=== PATIENT | female | born 1990 | race Caucasian/White ===

== ENCOUNTER 2023-04-23 21:54 | Outpatient (REF) | payer OTHER, SELFPAY ==
[2023-04-29 00:10] LABS: Age Gdln ACOG Testing Note (.); HPV Aptima Negative (Negative); IGP, Aptima HPV, rfx 16/18,45 Note (.)
== END 2023-04-23 21:55 | disposition home or self-care (01) ==
LOC: LAB 21:54
PROVIDERS: PCP Obstetrics & Gynecology; Visit Provider Obstetrics & Gynecology
DX: Z12.4 Encounter for screening for malignant neoplasm of cervix (principal)
CPT/HCPCS: 87624; G0145

== ENCOUNTER 2024-04-27 19:13 | Outpatient (REF) | payer OTHER, SELFPAY | END 2024-04-27 19:14 | disposition home or self-care (01) | LOC: LAB 19:13 | PROVIDERS: PCP Obstetrics & Gynecology; Visit Provider Obstetrics & Gynecology | DX: Z01.419 Encounter for gynecological examination (general) (routine) without abnormal findings (principal) | CPT/HCPCS: 87624; 88175 ==

== ENCOUNTER 2024-05-06 14:56 | Outpatient (OUT) | payer OTHER, SELFPAY ==
--- NOTE | 2024-05-06 15:06 | US_ITS ---
Patient Name: LOIS ROJAS MR#: [id number] : 1990 Exam Date: 05/06/2024 Ordering Doctor: DR Marcello El . RADIOLOGY REPORT PROCEDURE: MM TOMOSYNTHESIS DIAGNOSTIC BI, 05/06/2024, 15:54 US BREAST LT LIMITED, 05/06/2024, 15:10 COMPARISON: None. INDICATIONS: Breast Lump Calculator Name NCI Breast Cancer Risk Assessment Tool 5 Year Breast Cancer Risk Not Reported. Lifetime Breast Cancer Risk Not Reported. Personal Breast Cancer No Personal Ovarian Cancer No Treatments None Family Cancers None LOCATION: [facility] BREAST COMPOSITION: The breasts are heterogeneously dense,which may obscure small masses. FINDINGS: DIAGNOSTIC CATEGORY 1--NEGATIVE. RIGHT BREAST: No significant suspicious finding via mammography, tomosynthesis, and ultrasound. LEFT BREAST: No significant suspicious finding be mammography, tomosynthesis, and ultrasound. RECOMMENDATIONS: ROUTINE MAMMOGRAM AND CLINICAL EVALUATION IN 12 MONTHS. PLEASE NOTE: A NORMAL MAMMOGRAM DOES NOT EXCLUDE THE POSSIBILITY OF BREAST CANCER. A CLINICALLY SUSPICIOUS PALPABLE LUMP SHOULD BE BIOPSIED. Dictated by: Ronaldo Bridges M.D. on 05/06/2024 at 16:43 Approved by: Ronaldo Bridges M.D. on 05/06/2024 at 16:48
--- OUTSIDE RECORDS SUMMARY | 2024-05-06 15:08 | XMS_ITS | CCD ---
Author Organization [facility] Care Team Providers Care Costume Director Name Role Phone Mckayla Alexis Primary Care Provider TATE, DR PEDERSEN Admitting Unavailable TATE, DR PEDERSEN Attending Unavailable DEFRANCE, DR BLOCK Primary Care Unavailable TATE, DR PEDERSEN Consulting Unavailable TATE, DR PEDERSEN Consulting Unavailable DEFRANCE, DR BLOCK Primary Care Unavailable TATE, DR PEDERSEN Attending Unavailable TATE, DR PEDERSEN Admitting Unavailable KARASIK, DR RODRÍGUEZ Consulting Unavailable DEFRANCE, DR BLOCK Primary Care Unavailable TATE, DR PEDERSEN Attending Unavailable TATE, DR PEDERSEN Admitting Unavailable TATE, DR PEDERSEN Consulting Unavailable GEMBUSENDY Consulting Unavailable TATE, DR PEDERSEN Procedure Practitioner Unavailab le TATE, DR PEDERSEN Admitting Unavailable ATTE, DR PEDERSEN Attending Unavailable DEFRANCE, DR BLOCK Primary Care Unavailable TATE, DR PEDERSEN Consulting Unavailable TATE, DR PEDERSEN Admitting Unavailable TATE, DR PEDERSEN Attending Unavailable DEFRANCE, DR BLOCK Primary Care Unavailable TATE, DR PEDERSEN Consulting Unavailable ZIEBER, DR MAC Higuera Consulting Unavailable TATE, DR PEDERSEN Consulting Unavailable DEFRANCE, DR BLOCK Primary Care Unavailable TATE, DR PEDERSEN Attending Unavailable TATE, DR PEDERSEN Admitting Unavailable DEFRANCE, DR BLOCK Primary Care Unavailable UGBANA, LILY Attending Unavailable UGBANA, LILY Admitting Unavailable TATE, DR PEDERSEN Admitting Unavailable TATE, DR PEDERSEN Attending Unavailable DEFRANCE, DR BLOCK Primary Care Unavailable TATE, DR PEDERSEN Consulting Unavailable WEST, DR BLOCK Consulting Unavailable DEFRANCE, DR BLOCK Primary Care Unavailable TATE, DR PEDERSEN Attending Unavailable TATE, DR PEDERSEN Admitting Unavailable TATE, DR PEDERSEN Consulting Unavailable TATE, DR PEDERSEN Consulting Unavailable DEFRANCE, DR BLOCK Primary Care Unavailable TATE, DR PEDERSEN Attending Unavailable TATE, DR PEDERSEN Admitting Unavailable TATE, DR PEDERSEN Consulting Unavailable DEFRANCE, DR BLOCK Primary Care Unavailable TATE, DR PEDERSEN Attending Unavailable TATE, DR PEDERSEN Admitting Unavailable ZIEBER, DR MAC Higuera Consulting Unavailable KARASIK, DR RODRÍGUEZ Consulting Unavailable KARASIK, DR RODRÍGUEZ Attending Unavailable KARASIK, DR RODRÍGUEZ Admitting Unavailable DEFRANCE, DR BLOCK Primary Care Unavailable TATE, DR PEDERSEN Admitting Unavailable TAET, DR PEDERSEN Attending Unavailable DEFRANCE, DR BLOCK Primary Care Unavailable WEST, DR MCKAYLA Irizarry Consulting Unavailable TATE, DR PEDERSEN Consulting Unavailable ZIEBER, DR MAC Higuera Consulting Unavailable TATE, DR PEDERSEN Consulting Unavailable DEFRANCE, DR BLOCK Primary Care Unavailable TATE, DR PEDERSEN Admitting Unavailable TATE, DR PEDERSEN Attending Unavailable ZIEBER, DR MAC Higuera Consulting Unavailable TATE, DR PEDERSEN Consulting Unavailable DEFRANCE, DR BLOCK Primary Care Unavailable TATE, DR PEDERSEN Attending Unavailable TATE, DR PEDERSEN Admitting Unavailable ZIEBER, DR MAC Higuera Consulting Unavailable TATE, DR PEDERSEN Admitting Unavailable TATE, DR PEDERSEN Attending Unavailable DEFRANCE, DR BLOCK Primary Care Unavailable TATE, DR PEDERSEN Consulting Unavailable ZIEBER, DR MAC Higuera Consulting Unavailable TATE, DR PEDERSEN Admitting Unavailable TATE, DR PEDERSEN Attending Unavailable DEFRANCE, DR BLOCK Primary Care Unavailable WEST, DR MCKAYLA Irizarry Consulting Unavailable TATE, DR PEDERSEN Consulting Unavailable DEFRANCE, DR BLOCK Primary Care Unavailable TATE, DR PEDERSEN Attending Unavailable TATE, DR PEDERSEN Admitting Unavailable DEFRANCE, DR BLOCK Primary Care Unavailable KARASIK, DR RODRÍGUEZ Admitting Unavailable KARASIK, DR RODRÍGUEZ Attending Unavailable KARASIK, DR RODRÍGUEZ Consulting Unavailable TATE, DR PEDERSEN Consulting Unavailable ZIEBER, DR MAC Higuera Consulting Unavailable Mckayla Alexis Primary Care Provider Mckayla Alexis Primary Care Provider MCKAYLA WESTBROOK. Referring Unavailable MCKAYLA WESTBROOK. Primary Care Unavailable DEFRANCE, MCKAYLA Gallegos Attending Unavailable DEFRANCE, MCKAYLA Gallegos Referring Unavailable DEFRANCE, MCKAYLA Gallegos Primary Care Unavailable DEFRANCE, MCKAYLA T Attending Unavailable MCKAYLA WESTBROOK Referring Unavailable DEFMCKAYLA GURROLA Primary Care Unavailable SEDLAK, SOHEILA Zelaya Referring Unavailable DE ROSENDA, MCKAYLA MONDRAGON Primary Care Unavaila ble SEDLAK, SOHEILA Zelaya Referring Unavailable DE ROSENDA, MCKAYLA GIANCARLO Primary Care Unavaila ble SEDLAK, SOHEILA Zelaya Referring Unavailable DE ROSENDA, MCKAYLA GIANCARLO Primary Care Unavaila ble DE ROSENDA, MCKAYLA GIANCARLO Primary Care Unavaila ble SEDLAK, SOHEILA Zelaya Referring Unavailable SEDLAK, SOHEILA Zelaya Attending Unavailable DE ROSENDA, MCKAYLA MONDRAGON Primary Care Unavaila ble SEDLAK, SOHEILA Zelaya Attending Unavailable DE ROSENDA, MCKAYLA MONDRAGON Primary Care Unavaila ble TATENUVIA Attending Unavailable Medications Current Medications Medication Drug Class(es) Dates Sig (Normalized) Sig (Original) amoxicillin 875 mg / clavulanate 125 mg oral tablet (1 source) Penicillin-class Antibacterial Start: 01-30-2024 take 1 tablet by mouth every twelve hours Amoxicillin-Pot Clavulanate Active 1 TAB PO Every 12 hours 14 January 30, 2024 12:00am Calcium Carbonate / vitamin D3 (1 source) Start: 01-19-2024 take 1 tablet by mouth once daily calcium carbonate/vitamin D3 (SHAN-600 WITH VITAMIN D ORAL) Take 1 tablet by mouth once daily. 0 01/19/2024 Active cholecalciferol 0.125 mg oral capsule (9 sources) Vitamin D take 1 capsule by mouth once daily Cholecalciferol, Vitamin D3, 5,000 unit cap Indications: Multiple sclerosis (HCC) , Vitamin D deficiency Take 5,000 Units by mouth once daily. 0 Active Comment on above: Take 5,000 Units by mouth once daily. dextromethorphan hydrobromide 15 mg / guaiFENesin 400 mg / pseudoephedrine hydrochloride 60 mg oral tablet (1 source) alpha-Adrenergic Agonist, Uncompetitive X-gnchla-R-asparta te Receptor Antagonist, Sigma-1 Agonist Start: 01-30-2024 take 4 tablets by mouth every twenty-four hours Pseudoephedrine-Dm -Guaifenesin (Capmist Dm) 60-15-400 mg tablet Active 1 TAB PO EVERY 4-6 HOURS January 30, 2024 12:00am do not exceed 4 doses per 24 hrs iv contrast (will be provided with radiology test) (3 sources) Start: 04-02-2024 inject 1 dose intravenously once iv contrast (will be provided with radiology test) Indications: Multiple sclerosis (HCC) , Encounter for long-term (current) use of medications MRI Brain Inject, intravenously, once for 1 dose.No IV access, insert saline lock prior to beginning of sedation, infusion, injection of imaging exam.Discontinue saline lock post exam. If Pt. has a central line or IVAD, may access for administration according to line specific nursing protocol.Once exam is complete flush line and de-access according to line specific nursing protocol in the MR contrast administration guidelines link 1 Each 0 04/02/2024 Active Start: 08-15-2022 End: 08-16-2022 inject 1 dose intravenously once iv contrast (will be provided with radiology test) Indications: Multiple sclerosis (HCC) MRI Brain Inject, intravenously, once for 1 dose.No IV access, insert saline lock prior to beginning of sedation, infusion, injection of imaging exam.Discontinue saline lock post exam. If Pt. has a central line or IVAD, may access for administration according to line specific nursing protocol.Once exam is complete flush line and de-access according to line specific nursing protocol in the MR contrast administration guidelines link 1 Each 0 08/15/2022 08/16/2022 Active Start: 04-08-2022 End: 04-09-2022 inject 1 dose intravenously once iv contrast (will be provided with radiology test) MRI Brain Inject, intravenously, once for 1 dose.No IV access, insert saline lock prior to beginning of sedation, infusion, injection of imaging exam.Discontinue saline lock post exam. If Pt. has a central line or IVAD, may access for administration according to line specific nursing protocol.Once exam is complete flush line and de-access according to line specific nursing protocol in the MR contrast administration guidelines link 1 Each 0 04/08/2022 04/09/2022 Active Comment on above: MRI Brain Inject, in travenously, once for 1 dose.No IV access, insert saline lock prior to beginning of sedation, infusion, injection of imaging exam.Discontinue saline lock post exam. If Pt. has a central line or IVAD, may access for administration according to line specific nursing protocol.Once exam is complete flush line and de-access according to line specific nursing protocol in the MR contrast administration guidelines link multivit-min/ferrous fumarate (MULTI VITAMIN ORAL) (5 sources) multivit-min/colby barbi fumarate (MULTI VITAMIN ORAL) Take by mouth. 0 Active Comment on above: Take by mouth. ocrelizumab (OCREVUS INTRAVENOUS) (7 sources) ocrelizumab (OCR EVUS INTRAVENOUS) Inject intravenously once every 6 months. 0 Active Comment on above: Inject intravenously once every 6 months. Completed/Discontinued Medications Medication Drug Class(es) Dates Sig (Normalized) Sig (Original) acetaminophen 500 mg oral tablet (2 sources) Start: 01-07-2024 End: 01-07-2024 acetaminophen 1,000 mg tab(s) (TYLENOL) Start: 12-24-2023 End: 12-24-2023 acetaminophen 1,000 mg tab(s ) (TYLENOL) diphenhydrAMINE hydrochloride 25 mg oral capsule (2 sources) Histamine-1 Receptor Antagonist Start: 01-07-2024 End: 01-07-2024 diphenhydrAMINE 50 mg capsule (BENADRYL) Start: 12-24-2023 End: 12-24-2023 diphenhydrAMINE 50 mg capsul e (BENADRYL) Estradiol / Progesterone (1 source) Progesterone, Estrogen End: 04-08-2022 ESTRADIOL-PROGESTERONE ORAL Take by mouth. 0 04/08/2022 Discontinued (Other) Comment on above: Take by mouth. methylPREDNISolone 125 mg injection (2 sources) Corticosteroid Start: 01-07-2024 End: 01-07-2024 methylPREDNISolone sod succinate(PF) 100 mg injection (SOLU-Medrol) Start: 12-24-2023 End: 12-24-2023 methylPREDNISolone sod succi valentine(PF) 100 mg injection (SOLU-Medrol) 10 ml ocrelizumab 30 mg/ml injection (2 sources) Start: 01-07-2024 End: 01-07-2024 ocrelizumab (OCREVUS) in NaC l 0.9% Vial-Mate 300 mg 250 mL Start: 12-24-2023 End: 12-24-2023 ocrelizumab (OCREVUS) in NaC l 0.9% Vial-Mate 300 mg 250 mL Pxnonjiv-Gt-Rqd-Fe-FA tab (4 sources) Start: 12-18-2018 take 1 tablet by mouth once daily Sasihwdo-Eo-Top-Fe-FA tab Take 1 tablet by mouth once daily. 0 12/18/2018 Active Comment on above: Take 1 tablet by mahi th once daily. Problems Active Problems Problem Classification Problem Date Documented Date Episodic/Chronic Immunity disorders (1 source) Other specified disorders involving the immune mechanism, not elsewhere classified; Translations: [OTH SPEC D/O INVOLV IMMUNE MECH NEC] Onset: 06-06-2022 Chronic Menstrual disorders (4 sources) Irregular menstruation, unspecified; Translations: [IRREGULAR MENSTRUATION UNSPECIFIED] Onset: 11-16-2021 Chronic Multiple sclerosis (19 sources) Multiple sclerosis; Translations: [Multiple sclerosis] Onset: 04-21-2014 Chronic OB-related trauma to perineum and vulva (1 source) First degree perineal laceration during delivery; Translations: [FIRST DEG PERINEAL LAC DUR DELIV] Onset: 06-25-2022 Episodic Other aftercare (1 source) Long-term current use of drug therapy; Translations: [Other correction (current) drug therapy] 04-02-2024 Episodic Other complications of ; puerperium affecting management of mother (1 source) Diseases of the nervous system complicating childbirth; Translations: [DISEASES NERV SYS COMP CHILDBIRTH] Onset: 06-25-2022 Episodic Other complications of (4 sources) Diseases of the nervous system complicating , third trimester; Translations: [DISEASES NERV SYS COMP PREG 3RD TRI] Onset: 06-17-2022 Episodic Other and delivery including normal (11 sources) Encounter for routine follow-up; Translations: [Single live ] Onset: 11-21-2021 Episodic Other screening for suspected conditions (not mental disorders or infectious disease) (13 sources) Encounter for screening for Streptococcus B; Translations: [Encounter for screening for diabetes mellitus] Onset: 01-03-2022 Episodic Other upper respiratory disease (1 source) Pain in throat Onset: 02-17-2024 Episodic Other upper respiratory infections (1 source) Chronic sinusitis, unspecified; Translations: [Chronic sinusitis, unspecified] Onset: 02-17-2024 Chronic Other upper respiratory infections (3 sources) Acute maxillary sinusitis; Translations: [Acute maxillary sinusitis, unspecified] 01-30-2024 Episodic Residual codes; unclassified (1 source) 39 weeks gestation of ; Translations: [39 WEEKS GESTATION OF ] Onset: 06-25-2022 Episodic Residual codes; unclassified (1 source) 38 weeks gestation of ; Translations: [38 WEEKS GESTATION OF ] Onset: 06-13-2022 Episodic Residual codes; unclassified (1 source) 37 weeks gestation of ; Translations: [37 WEEKS GESTATION OF ] Onset: 06-06-2022 Episodic Residual codes; unclassified (1 source) 36 weeks gestation of ; Translations: [36 WEEKS GESTATION OF ] Onset: 05-30-2022 Episodic Residual codes; unclassified (1 source) 35 weeks gestation of ; Translations: [35 WEEKS GESTATION OF ] Onset: 05-22-2022 Episodic Residual codes; unclassified (1 source) 34 weeks gestation of ; Translations: [34 WEEKS GESTATION OF ] Onset: 05-18-2022 Episodic Residual codes; unclassified (1 source) 33 weeks gestation of ; Translations: [33 WEEKS GESTATION OF ] Onset: 05-09-2022 Episodic Residual codes; unclassified (1 source) 32 weeks gestation of ; Translations: [32 WEEKS GESTATION OF ] Onset: 04-30-2022 Episodic Residual codes; unclassified (1 source) 28 weeks gestation of ; Translations: [28 WEEKS GESTATION OF ] Onset: 04-11-2022 Episodic Screening and history of mental health and substance abuse codes (1 source) Personal history of nicotine dependence; Translations: [PERSONAL HISTORY OF NICOTINE DEPEND] Onset: 06-25-2022 Episodic Umbilical cord complication (1 source) Labor and delivery complicated by other cord entanglement, with compression, not applicable or unspecified; Translations: [L AND D COMP [facility] CRD ENTANGL COMPRS UNS] Onset: 06-25-2022 Episodic Unclassified (1 source) CONTACT W/AND (SUSP) EXPOS COVID-19; Translations: [CONTACT W/AND (SUSP) EXPOS COVID-19] Onset: 06-25-2022 Unclassified (3 sources) [facility] SPCF DIS/COND COMPL ; Translations: [[facility] SPCF DIS/COND COMPL ] Onset: 06-06-2022 Unclassified (1 source) Annual Exam Onset: 01-08-2024 Past or Other Problems Problem Classification Problem Date Documented Date Episodic/Chronic Immunizations and screening for infectious disease (6 sources) Encounter for screening for human papillomavirus (HPV); Translations: [Encounter for screening for infections with a predominantly sexual mode of transmission] Onset: 12-04-2021 Episodic Other female genital disorders (1 source) Other specified noninflammatory disorders of vagina; Translations: [OT SPEC NONINFLAMMATORY D/O VAGINA] Onset: 01-04-2022 Episodic Unclassified (1 source) [facility] SPCF DIS/COND COMPL ; Translations: [OT SPCF DIS/COND COMPL ] Onset: 06-04-2022 Results Test Name Value Interpretation Reference Range Facility No Panel InformationOrdered By: Bela Kelly on 01-30-2024 Quick Strep (POC) [facility] CBC AND AUTO DIFFon 01-13-20 24 ABSOLUTE BASOPHIL 0.0 X10E9/L Normal 0.0-0.[address] [facility] Comment on above: Performed By: #### Chely HERNANDEZ CMP, 38041-4 #### [facility] ([id number]) [address], [address] [place] [address] ABSOLUTE NEUTROPHIL 3.5 X10E9/L Normal 1.5-6.6 [facility] Comment on above: Performed By: #### Chely HERNANDEZ CMP, 16077-2 #### [facility] ([id number]) [address], [address] [place] [address] Basophils/100 WBC (Bld) 0.5 % Normal [facility] Comment on above: Performed By: #### Chely HERNANDEZ CMP, 67509-6 #### [facility] ([id number]) [address] [place] [address] Eosinophils (Bld) [#/Vol] 0.4 10*3/uL Normal 0.0-0.4 [facility] Comment on above: Performed By: #### Chely HERNANDEZ CMP, 26626-2 #### [facility] ([id number]) [address], [address] [place] [address] Eosinophils/100 WBC (Bld) 6.0 % Normal [facility] Comment on above: Performed By: #### Chely HERNANDEZ CMP, 26755-1 #### [facility] ([id number]) [address], [address] [place] [address] Erythrocyte distribution width (RBC) [Ratio] 14.2 % Normal 11.5-15.0 [facility] Comment on above: Performed By: #### Chely HERNANDEZ CMP, 63441-8 #### [facility] ([id number]) [address], [address] [place] [address] Hematocrit (Bld) [Volume fraction] 35.6 % Normal 35-47 [facility] Comment on above: Performed By: #### Chely HERNANDEZ CMP, 46484-3 #### [facility] ([id number]) [address], [address] [place] [address] Hemoglobin (Bld) [Mass/Vol] 11.5 g/dL Low 11.7-15.5 [facility] Comment on above: Performed By: #### Chely HERNANDEZ CMP, 77105-1 #### [facility] ([id number]) [address], [address] [place] [address] Lymphocytes (Bld) [#/Vol] 1.6 10*3/uL Normal 1.0-3.5 [facility] Comment on above: Performed By: #### Chely HERNANDEZ CMP, 04369-8 #### [facility] ([id number]) [address], [address] [place] [address] Lymphocytes/100 WBC (Bld) 27.4 % Normal [facility] Comment on above: Performed By: #### Chely HERNANDEZ CMP, 60242-6 #### [facility] ([id number]) [address], [address] [place] [address] MCH (RBC) [Entitic mass] 25.3 pg Low 27-34 [facility] Comment on above: Performed By: #### C DAVID, CMP, 78675-4 #### [facility] ([id number]) [address], [address] [place] [address] MCHC (RBC) [Mass/Vol] 32.5 g/dL Normal 32-36 [facility] Comment on above: Performed By: #### Chely BCA, CMP, 71005-8 #### [facility] ([id number]) [address], [address] [place] [address] MCV (RBC) [Entitic vol] 78 fL Low 80-100 [facility] Comment on above: Performed By: #### Chely HERNANDEZ, CMP, 76804-3 #### [facility] ([id number]) [address], [address] [place] [address] Monocytes (Bld) [#/Vol] 0.5 10*3/uL Normal 0-0.9 [facility] Comment on above: Performed By: #### Chely HERNANDEZ, CMP, 53506-6 #### [facility] ([id number]) [address], [address] [place] [address] Monocytes/100 WBC (Bld) 7.7 % Normal [facility] Comment on above: Performed By: #### Chely BCA, CMP, 49018-1 #### [facility] ([id number]) [address], [address] [place] [address] Neutrophils/100 WBC (Bld) 58.4 % Normal [facility] Comment on above: Performed By: #### Chely BCA, CMP, 83151-9 #### [facility] ([id number]) [address], [address] [place] [address] Platelet mean volume (Bld) [Entitic vol] 8.6 fL Normal 7-12 [facility] Comment on above: Performed By: #### Chely BCA, CMP, 14308-8 #### [facility] ([id number]) [address], [address] [place] [address] Platelets (Bld) [#/Vol] 295 10*3/uL Normal 150-450 [facility] Comment on above: Performed By: #### C BCA, CMP, 70468-2 #### [facility] ([id number]) [address], [address] [place] [address] RBC COUNT 4.57 X10E12/L Normal 3.80-5.20 [facility] Comment on above: Performed By: #### C BCA, CMP, 31053-7 #### [facility] ([id number]) [address], [address] [place] [address] WBC (Bld) [#/Vol] 6.0 10*3/uL Normal 4.0-11.[address] [facility] Comment on above: Performed By: #### C BCA, CMP, 59478-2 #### [facility] ([id number]) [address], [address] [place] [address] COMPREHENSIVE METABOLIC PANE Sebastien 01-13-2024 Albumin [Mass/Vol] 3.9 g/dL Normal 3.2-5.[address] [facility] Comment on above: Performed By: #### C BCA, CMP, 20411-2 #### [facility] ([id number]) [address], [address] [place] [address] ALP [Catalytic activity/Vol] 61 U/L Normal 39-130 [facility] Comment on above: Performed By: #### C BCA, CMP, 91787-9 #### [facility] ([id number]) [address], [address] [place] [address] ALT [Catalytic activity/Vol] 10 U/L Normal 0-31 [facility] Comment on above: Performed By: #### C BCA, CMP, 04099-6 #### [facility] ([id number]) [address], [address] [place] [address] Anion gap [Moles/Vol] 6 mmol/L Normal 5-15 [facility] Comment on above: Performed By: #### C DAVID CMP, 98655-3 #### [facility] ([id number]) [address], [address] [place] [address] AST [Catalytic activity/Vol] 13 U/L Normal 0-41 [facility] Comment on above: Performed By: #### C DAVID, CMP, 26791-0 #### [facility] ([id number]) [address], [address] [place] [address] Bilirubin [Mass/Vol] 0.5 mg/dL Normal 0.3-1.2 [facility] Comment on above: Performed By: #### Chely HERNANDEZ CMP, 29230-8 #### [facility] ([id number]) [address], [address] [place] [address] Calcium [Mass/Vol] 8.4 mg/dL Low 8.5-10.[address] [facility] Comment on above: Performed By: #### Chely HERNANDEZ, CMP, 68764-0 #### [facility] ([id number]) [address], [address] [place] [address] Chloride [Moles/Vol] 106 mmol/L Normal 98-109 [facility] Comment on above: Performed By: #### Chely HERNANDEZ CMP, 37212-3 #### [facility] ([id number]) [address], [address] [place] [address] CO2 [Moles/Vol] 27 mmol/L Normal 22-32 [facility] Comment on above: Performed By: #### Chely BCA, CMP, 40273-1 #### [facility] ([id number]) [address], [address] [place] [address] Creatinine [Mass/Vol] 0.64 mg/dL Normal 0.40-1.00 [facility] Comment on above: Result Comment: METH OD TRACEABLE TO IDMS STANDARD Performed By: #### C JACINTO HERNANDEZ, 96733-4 #### [facility] ([id number]) [address], [address] [place] [address] eGFR (CKD-EPI) NON-RACE DEPENDENT >90 Normal >59 [facility] Comment on above: Result Comment: Reported eGFR is based on the CKD-EPI 2020 equation that does not use a race coefficient. Performed By: #### C JACINTO HERNANDEZ, 06763-0 #### [facility] ([id number]) [address], [address] [place] [address] Glucose [Mass/Vol] 81 mg/dL Normal 65-[address] [facility] Comment on above: Performed By: #### Chely HERNANDEZ CMP, 22836-5 #### [facility] ([id number]) [address], [address] [place] [address] Potassium [Moles/Vol] 3.7 mmol/L Normal 3.5-5.0 [facility] Comment on above: Performed By: #### Chely HERNANDEZ CMP, 08449-0 #### [facility] ([id number]) [address], [address] [place] [address] Protein [Mass/Vol] 6.7 g/dL Normal 6.0-8.[address] [facility] Comment on above: Performed By: #### Chely HERNANDEZ CMP, 52888-6 #### [facility] ([id number]) [address], [address] [place] [address] Sodium [Moles/Vol] 139 mmol/L Normal 134-[address] [facility] Comment on above: Performed By: #### Chely HERNANDEZ CMP, 97546-1 #### [facility] ([id number]) [address], [address] [place] [address] Urea nitrogen [Mass/Vol] 19 mg/dL Normal 5-23 [facility] Comment on above: Performed By: #### Chely HERNANDEZ, CMP, 43625-0 #### [facility] ([id number]) [address], [address] [place] [address] Lipid 1996 panelon 4 Cholesterol [Mass/Vol] 202 mg/dL High 150-200 [facility] Comment on above: Performed By: #### Chely HERNANDEZ, CMP, 66841-7 #### [facility] ([id number]) [address], [address] [place] [address] Cholesterol in HDL [Mass/Vol] 51 mg/dL Normal >39 [facility] Comment on above: Result Comment: HDL <40 mg/dL - High Risk HDL > or = 40mg/dL- Desirable HDL >60 mg/dL - Negative Risk Performed By: #### Chely HERNANDEZ, CMP, 06797-3 #### [facility] ([id number]) [address], [address] [place] [address] Cholesterol in LDL [Mass/Vol] 123 mg/dL Normal <130 [facility] Comment on above: Result Comment: LDL <100 mg/dL - Desirable LDL >160 mg/dL - High Risk Performed By: #### Chely BCA, CMP, 82799-3 #### [facility] ([id number]) [address], [address] [place] [address] Cholesterol in VLDL [Mass/Vol] 28 mg/dL Normal 0-30 [facility] Comment on above: Performed By: #### Chely BCA, CMP, 69095-9 #### [facility] ([id number]) [address], [address] [place] [address] CHOLESTEROL:HDL 4.0 Normal 1.0-5.0 [facility] Comment on above: Performed By: #### C BCA, CMP, 16185-1 #### [facility] ([id number]) [address] [place] [address] Triglyceride [Mass/Vol] 142 mg/dL Normal 27-150 [facility] Comment on above: Performed By: #### C BCA, CMP, 92910-6 #### [facility] ([id number]) [address] [place] [address] BLOOD TB SCREENon 12-01-2023 M. tuberculosis tuberculin stim IFN-g Ql (Bld) Negative Normal [facility] Comment on above: Order Comment: Sanaz su Type: BLOOD SPECIMEN Ordering Facility: [facility] Address: [address] [place] [address] Performed By: #### I NFTBP #### [facility] IA [id number] [address] [place] [address] [place] MITOGEN MINUS NIL >9.98 Normal >=0.50 [facility] Comment on above: Order Comment: Sanaz su Type: BLOOD SPECIMEN Ordering Facility: [facility] Address: [address] [place] [address] Performed By: #### I NFTBP #### [facility] IA [id number] [address] [place] [address] [place] TB GAMMA INTERPRETATION Infection with M. tuberculosis complex is unlikely. If latent tuberculosis infection is highly suspected, a negative result does not rule out the infection. Specimens from immunocompromised patients and those <5 years of age may show false negative results. In case of a contact investigation, please repeat 8-12 weeks after a known exposure. Normal [facility] Comment on above: Order Comment: Sanaz su Type: BLOOD SPECIMEN Ordering Facility: [facility] Address: [address] [place] [address] Performed By: #### I NFTBP #### [facility] CLIA [id number] [address] [place] [address] [place] TB NIL 0.02 IU/mL Normal <=8.00 [facility] Comment on above: Order Comment: Speci men Type: BLOOD SPECIMEN Ordering Facility: [facility] Address: [address] [place] [address] Performed By: #### I NFTBP #### [facility] CLIA [id number] [address] [place] [address] [place] TB1 AG MINUS NIL 0.10 IU/mL Normal <0.35 [facility] Comment on above: Order Comment: Speci men Type: BLOOD SPECIMEN Ordering Facility: [facility] Address: [address] [place] [address] Performed By: #### I NFTBP #### [facility] CLIA [id number] [address] [place] [address] [place] TB2 AG MINUS NIL 0.06 IU/mL Normal <0.35 [facility] Comment on above: Order Comment: Speci men Type: BLOOD SPECIMEN Ordering Facility: [facility] Address: [address] [place] [address] Performed By: #### I NFTBP #### [facility] CLIA [id number] [address] [place] [address] [place] CBC W Auto Differential pane l (Bld)on 12-01-2023 Basophils (Bld) [#/Vol] 0.05 10*3/uL Normal <0.11 [facility] Comment on above: Order Comment: Speci men Type: BLOOD SPECIMEN Ordering Facility: [facility] Address: [address] [place] [address] Performed By: #### 5 7021-8 #### [facility] CLIA [id number] [address] [place] [address] Basophils/100 WBC (Bld) 0.7 % Normal [facility] Comment on above: Order Comment: Speci men Type: BLOOD SPECIMEN Ordering Facility: [facility] Address: [address] [address] Performed By: #### 5 7021-8 #### [facility] CLIA [id number] [address] [place] [address] Differential cell count method Nom (Bld) Auto Normal [facility] Comment on above: Order Comment: Speci men Type: BLOOD SPECIMEN Ordering Facility: [facility] Address: [address] [place], [place] [address] Performed By: #### 5 7021-8 #### [facility] CLIA [id number] [address] [place] [address] Eosinophils (Bld) [#/Vol] 0.51 10*3/uL High <0.46 [facility] Comment on above: Order Comment: Speci men Type: BLOOD SPECIMEN Ordering Facility: [facility] Address: [address] [place] [address] Performed By: #### 5 7021-8 #### [facility] CLIA [id number] [address] [place] [address] Eosinophils/100 WBC (Bld) 6.8 % Normal [facility] Comment on above: Order Comment: Speci men Type: BLOOD SPECIMEN Ordering Facility: [facility] Address: [address] [place] [address] Performed By: #### 5 7021-8 #### [facility] CLIA [id number] [address] [place] [address] Erythrocyte distribution width (RBC) [Ratio] 14.2 % Normal 11.5-15.0 [facility] Comment on above: Order Comment: Speci men Type: BLOOD SPECIMEN Ordering Facility: [facility] Address: [address] [address] Performed By: #### 5 7021-8 #### [facility] CLIA [id number] [address] [place] [address] Hematocrit (Bld) [Volume fraction] 36.9 % Normal 36.0-46.0 [facility] Comment on above: Order Comment: Speci men Type: BLOOD SPECIMEN Ordering Facility: [facility] Address: [address] [place], [place] [address] Performed By: #### 5 7021-8 #### [facility] CLIA [id number] [address] [place] [address] Hemoglobin (Bld) [Mass/Vol] 11.7 g/dL Normal 11.5-15.5 [facility] Comment on above: Order Comment: Speci men Type: BLOOD SPECIMEN Ordering Facility: [facility] Address: [address] [place] [address] Performed By: #### 5 7021-8 #### [facility] CLIA [id number] [address] [place] [address] Immature granulocytes (Bld) [#/Vol] 10*3/uL Normal <0.10 [facility] Comment on above: Order Comment: Speci men Type: BLOOD SPECIMEN Ordering Facility: [facility] Address: [address] [place] [address] Performed By: #### 5 7021-8 #### [facility] CLIA [id number] [address] [place] [address] Immature granulocytes/100 WBC (Bld) 0.3 % Normal [facility] Comment on above: Order Comment: Speci men Type: BLOOD SPECIMEN Ordering Facility: [facility] Address: [address] [place] [address] Performed By: #### 5 7021-8 #### [facility] CLIA [id number] [address] [place] [address]46 Lymphocytes (Bld) [#/Vol] 2.47 10*3/uL Normal 1.00-4.00 [facility] Comment on above: Order Comment: Speci men Type: BLOOD SPECIMEN Ordering Facility: [facility] Address: [address] [address] Performed By: #### 5 7021-8 #### [facility] CLIA [id number] [address] [place] [address]18 Lymphocytes/100 WBC (Bld) 32.9 % Normal [facility] Comment on above: Order Comment: Speci men Type: BLOOD SPECIMEN Ordering Facility: [facility] Address: [address] [place] [address] Performed By: #### 5 7021-8 #### [facility] CLIA [id number] [address] [place] [address]5788 MCH (RBC) [Entitic mass] 25.7 pg Low 26.0-34.0 [facility] Comment on above: Order Comment: Speci men Type: BLOOD SPECIMEN Ordering Facility: [facility] Address: [address] [place] [address] Performed By: #### 5 7021-8 #### [facility] CLIA [id number] [address] [place] [address] 78779 MCHC (RBC) [Mass/Vol] 31.7 g/dL Normal 30.5-36.0 [facility] Comment on above: Order Comment: Speci men Type: BLOOD SPECIMEN Ordering Facility: [facility] Address: [address] [place] [address] Performed By: #### 5 7021-8 #### [facility] CLIA [id number] [address] [place] [address] 63765 MCV (RBC) [Entitic vol] 81.1 fL Normal 80.0-100.0 [facility] Comment on above: Order Comment: Speci men Type: BLOOD SPECIMEN Ordering Facility: [facility] Address: [address] [place] [address] Performed By: #### 5 7021-8 #### [facility] CLIA [id number] [address] [place] [address] 06682 Monocytes (Bld) [#/Vol] 0.44 10*3/uL Normal <0.87 [facility] Comment on above: Order Comment: Speci men Type: BLOOD SPECIMEN Ordering Facility: [facility] Address: [address] [place] [address] Performed By: #### 5 7021-8 #### [facility] CLIA [id number] [address] [place] [address] 96727 Monocytes/100 WBC (Bld) 5.9 % Normal [facility] Comment on above: Order Comment: Speci men Type: BLOOD SPECIMEN Ordering Facility: [facility] Address: [address] [place] [address] Performed By: #### 5 7021-8 #### [facility] CLIA [id number] [address] [place] [address]24 Neutrophils (Bld) [#/Vol] 4.02 10*3/uL Normal 1.45-7.50 [facility] Comment on above: Order Comment: Speci men Type: BLOOD SPECIMEN Ordering Facility: [facility] Address: [address] [place] [address] Performed By: #### 5 7021-8 #### [facility] CLIA [id number] [address] [place] [address] 70377 Neutrophils/100 WBC (Bld) 53.4 % Normal [facility] Comment on above: Order Comment: Speci men Type: BLOOD SPECIMEN Ordering Facility: [facility] Address: [address] [place] [address] Performed By: #### 5 7021-8 #### [facility] CLIA [id number] [address] [place] [address] 29025 Nucleated RBC (Bld) [#/Vol] 10*3/uL Normal <0.01 [facility] Comment on above: Order Comment: Speci men Type: BLOOD SPECIMEN Ordering Facility: [facility] Address: [address] [place] [address] Performed By: #### 5 7021-8 #### [facility] CLIA [id number] [address] [place] [address]21 Nucleated RBC/100 WBC (Bld) [Ratio] 0.0 /100 WBC Normal [facility] Comment on above: Order Comment: Speci men Type: BLOOD SPECIMEN Ordering Facility: [facility] Address: [address] [address] Performed By: #### 5 7021-8 #### [facility] CLIA [id number] [address] [place] [address] 86379 Platelet mean volume (Bld) [Entitic vol] 9.6 fL Normal 9.0-12.7 [facility] Comment on above: Order Comment: Speci men Type: BLOOD SPECIMEN Ordering Facility: [facility] Address: [address] [address] Performed By: #### 5 7021-8 #### [facility] CLIA [id number] [address] [place] [address] 72384 Platelets (Bld) [#/Vol] 272 10*3/uL Normal 150-400 [facility] Comment on above: Order Comment: Speci men Type: BLOOD SPECIMEN Ordering Facility: [facility] Address: [address] [address] Performed By: #### 5 7021-8 #### [facility] CLIA [id number] [address] [place] [address] 23700 RBC (Bld) [#/Vol] 4.55 10*6/uL Normal 3.90-5.20 [facility] Comment on above: Order Comment: Speci men Type: BLOOD SPECIMEN Ordering Facility: [facility] Address: [address] [place] [address] Performed By: #### 5 7021-8 #### [facility] CLIA [id number] [address] [place] [address] 97376 WBC (Bld) [#/Vol] 7.51 10*3/uL Normal 3.70-11.00 [facility] Comment on above: Order Comment: Speci men Type: BLOOD SPECIMEN Ordering Facility: [facility] Address: [address] [address] Performed By: #### 5 7021-8 #### [facility] CLIA [id number] [address] [place] [address] Comprehensive metabolic 2000 panelon 12-01-2023 Albumin [Mass/Vol] 4.3 g/dL Normal 3.9-4.9 [facility] Comment on above: Order Comment: Speci men Type: BLOOD SPECIMEN Ordering Facility: [facility] Address: [address] [place] [address] Performed By: #### 2 4323-8 #### [facility] CLIA [id number] [address] [place] [address]19 ALP [Catalytic activity/Vol] 76 U/L Normal 34-123 [facility] Comment on above: Order Comment: Speci men Type: BLOOD SPECIMEN Ordering Facility: [facility] Address: [address] [place] [address] Performed By: #### 2 4323-8 #### [facility] CLIA [id number] [address] [place] [address]288 ALT [Catalytic activity/Vol] 11 U/L Normal 7-38 [facility] Comment on above: Order Comment: Speci men Type: BLOOD SPECIMEN Ordering Facility: [facility] Address: [address] [place] [address] Performed By: #### 2 4323-8 #### [facility] CLIA [id number] [address] [place] [address]79 Anion gap [Moles/Vol] 11 mmol/L Normal 9-18 [facility] Comment on above: Order Comment: Speci men Type: BLOOD SPECIMEN Ordering Facility: [facility] Address: [address] [place], [place] [address] Performed By: #### 2 4323-8 #### [facility] CLIA [id number] [address] [place] [address] AST [Catalytic activity/Vol] 12 U/L Low 13-35 [facility] Comment on above: Order Comment: Speci men Type: BLOOD SPECIMEN Ordering Facility: [facility] Address: [address] [place] [address] Performed By: #### 2 4323-8 #### [facility] CLIA [id number] [address] [place] [address] Bilirubin [Mass/Vol] mg/dL Low 0.2-1.3 [facility] Comment on above: Order Comment: Speci men Type: BLOOD SPECIMEN Ordering Facility: [facility] Address: [address] [place] [address] Performed By: #### 2 4323-8 #### [facility] CLIA [id number] [address] [place] [address]20 Calcium [Mass/Vol] 9.4 mg/dL Normal 8.5-10.2 [facility] Comment on above: Order Comment: Speci men Type: BLOOD SPECIMEN Ordering Facility: [facility] Address: [address] [place] [address] Performed By: #### 2 4323-8 #### [facility] CLIA [id number] [address] [place] [address] 22716 Chloride [Moles/Vol] 108 mmol/L High 97-105 [facility] Comment on above: Order Comment: Speci men Type: BLOOD SPECIMEN Ordering Facility: [facility] Address: [address] [place] [address] Performed By: #### 2 4323-8 #### [facility] CLIA [id number] [address] [place] [address] 27855 CO2 [Moles/Vol] 25 mmol/L Normal 22-30 [facility] Comment on above: Order Comment: Speci men Type: BLOOD SPECIMEN Ordering Facility: [facility] Address: [address] [place] [address] Performed By: #### 2 4323-8 #### [facility] CLIA [id number] [address] [place] [address]22 Creatinine [Mass/Vol] 0.74 mg/dL Normal 0.58-0.96 [facility] Comment on above: Order Comment: Sanaz su Type: BLOOD SPECIMEN Ordering Facility: [facility] Address: [address] [place] [address] Performed By: #### 2 4323-8 #### [facility] CLIA [id number] [address] [place] [address] Creatinine and Glomerular filtration rate.predicted panel (S/P/Bld) 108 mL/min/1.73m??? Normal >=60 [facility] Comment on above: Order Comment: Sanaz su Type: BLOOD SPECIMEN Ordering Facility: [facility] Address: [address] [place], [place] [address] Result Comment: Nikki mated Glomerular Filtration Rate (eGFR) is calculated using the 2020 CKD-EPI creatinine equation. This equation utilizes serum creatinine, sex, and age as parameters. The creatinine assay has traceable calibration to isotope dilution-mass spectrometry. Refer to KDIGO guidelines for clinical interpretation. In patients with unstable renal function, e.g. those with acute kidney injury, the eGFR may not accurately reflect actual GFR. Performed By: #### 2 4323-8 #### [facility] CLIA [id number] [address] [place] [address]406 Glucose [Mass/Vol] 81 mg/dL Normal 74-99 [facility] Comment on above: Order Comment: Sanaz su Type: BLOOD SPECIMEN Ordering Facility: [facility] Address: [address] [place] [id number] Result Comment: The [place] [employer] (ADA) provides guidance for cutoff values for fasting glucose and random glucose. The ADA defines fasting as no caloric intake for at least 8 hours. Fasting plasma glucose results between 100 to 125 mg/dL indicate increased risk for diabetes (prediabetes). Fasting plasma glucose results greater than or equal to 126 mg/dL meet the criteria for diagnosis of diabetes. In the absence of unequivocal hyperglycemia, results should be confirmed by repeat testing. In a patient with classic symptoms of hyperglycemia or hyperglycemic crisis, random plasma glucose results greater than or equal to 200 mg/dL meet the criteria for diagnosis of diabetes. Reference: Standards of Medical Care in Diabetes 2016, [place] [employer]. Diabetes Care. 2016.39(Suppl 1). Performed By: #### 2 4323-8 #### [facility] CLIA [id number] [address] [place] [address] Potassium [Moles/Vol] 3.9 mmol/L Normal 3.7-5.1 [facility] Comment on above: Order Comment: Speci men Type: BLOOD SPECIMEN Ordering Facility: [facility] Address: [address] [place] [address] Performed By: #### 2 4323-8 #### [facility] CLIA [id number] [address] [place] [address] Protein [Mass/Vol] 7.1 g/dL Normal 6.3-8.0 [facility] Comment on above: Order Comment: Speci men Type: BLOOD SPECIMEN Ordering Facility: [facility] Address: [address] [place] [address] Performed By: #### 2 4323-8 #### [facility] CLIA [id number] [address] [place] [address] Sodium [Moles/Vol] 144 mmol/L Normal 136-144 [facility] Comment on above: Order Comment: Speci men Type: BLOOD SPECIMEN Ordering Facility: [facility] Address: [address] [place], [place] [address] Performed By: #### 2 4323-8 #### [facility] CLIA [id number] [address] [place] [address]887 Urea nitrogen [Mass/Vol] 17 mg/dL Normal 7-21 [facility] Comment on above: Order Comment: Speci men Type: BLOOD SPECIMEN Ordering Facility: [facility] Address: [address] [place] [address] Performed By: #### 2 4323-8 #### [facility] CLIA [id number] [address] [place] [address] HBV core Ab Ser Qlon 024 HBV core Ab Ql (S) Negative Normal Negative [facility] Comment on above: Order Comment: Speci men Type: BLOOD SPECIMEN Ordering Facility: [facility] Address: [address] [place] [address] Result Comment: No e vidence of current or past infection with Hepatitis B virus. Should recent infection be suspected, repeat testing may be considered 3-4 weeks after this draw. Performed By: #### 2 2322-2, 39902-6, 5195-3 #### [facility] CLIA [id number] [address] [place] [address] [place] HBV surface Ab Ql (S)on HBV surface Ab Qn (S) 471.19 mIU/mL Normal [facility] Comment on above: Order Comment: Speci men Type: BLOOD SPECIMEN Ordering Facility: [facility] Address: [address] [place] [address] Result Comment: <8 m IU/mL: No serological evidence of immunity to Hepatitis B Virus. >/= 8 to <12 mIU/mL: No serological evidence of immunity to Hepatitis B Virus. >/= 12 mIU/mL: Consistent with serological evidence of immunity to Hepatitis B Virus. Performed By: #### 2 2322-2, 11947-1, 5195-3 #### [facility] CLIA [id number] [address] [place] [address] [place] HBV surface Ab Ser Qlon HBV surface Ab Ql (S) Positive Normal [facility] Comment on above: Order Comment: Speci men Type: BLOOD SPECIMEN Ordering Facility: [facility] Address: [address] [place] [address] Result Comment: Cons istent with serological evidence of immunity to Hepatitis B Virus. Performed By: #### 2 2322-2, 80287-5, 5195-3 #### [facility] CLIA [id number] [address] [place] [address] [place] HBV surface Ag Ser Qlon HBV surface Ag Ql (S) Negative Normal Negative [facility] Comment on above: Order Comment: Speci men Type: BLOOD SPECIMEN Ordering Facility: [facility] Address: [address] [place] [address] Performed By: #### 2 2322-2, 97637-0, 5195-3 #### [facility] CLIA [id number] [address] [place] [address] [place] HCV Ab Ser Qlon 12-01-2023 HCV Ab Ql (S) Negative Normal Negative [facility] Comment on above: Order Comment: Speci men Type: BLOOD SPECIMEN Ordering Facility: [facility] Address: [address] [place] [address] Result Comment: The result suggests no evidence of active infection with Hepatitis C virus. Should recent infection be suspected, repeat testing may be considered 4-6 weeks after this draw. Performed By: #### 1 6128-1 #### [facility] CLIA [id number] [address] [place] [address] [place] IgG SerPl-mCncon 12-01-2023 IgG [Mass/Vol] 1074 mg/dL Normal 700-1600 [facility] Comment on above: Order Comment: Pbi men Type: BLOOD SPECIMEN Ordering Facility: [facility] Address: [address] [place] [address] Performed By: #### 2 465-3, 2472-9 #### [facility] CLIA [id number] [address] [place] [address] [place] IgM SerPl-mCncon 12-01-2023 IgM [Mass/Vol] 106 mg/dL Normal 40-230 [facility] Comment on above: Order Comment: Speci men Type: BLOOD SPECIMEN Ordering Facility: [facility] Address: [address] [place] [address] Performed By: #### 2 465-3, 8062-9 #### [facility] CLIA [id number] [address] [place] [address] [place] CNOVon 11-28-2023 CNOV Office Visit ([facility] ) ELENALOIS SHAFFER ([id number]) 1990 F Date Time Provider Department 11/28/23 9:15 AM [facility] During your visit today, we recorded the following information about you: Pulse Blood pressure Weight Height 102/minute 114/66 78.8 kg 1.6 m Last Period 11/15/23 Soheila Matute APRN.[facility] 11/28/2023 9:44 AM [facility] FOR MULTIPLE SCLEROSIS FOLLOWUP/ESTABLISHED PATIENT VISIT Principal Neurologic Diagnosis: Multiple Sclerosis HISTORY OF ILLNESS Onset: 11/2013 Diagnosis of MS: 07/2015 (active MRI) Disease course at onset: relapsing-remitting Current disease course: relapsing-remitting Previous disease therapies: - Tecfidera 10/2015 - 05/2018. Stopped in order to become - Elected to start Gilenya 07/2015 but denied - Tecfidera 09/01/2019 - 12/10/2020 (restarted 09/01/2019 after . Stopped due to new lesions on MRI) - Ocrevus start 12/11/2020 AND 12/25/2020. Last q6 month tx 06/13/2021 (cycle 2, held for family planning) Current disease therapy: None Most recent MRI brain: 10/08/2023 Most recent MRI cervical spine: not done Most recent MRI thoracic spine: not done CSF: 03/23/2014 (+) OCBs 3 JCV serology: 07/18/2015 0.11 (-) VZV Ig07/18/2015 (+) CHIEF COMPLAINT: Follow-up for monitoring off MS modifying therapy INTERVAL HISTORY Usual treating team: Francis/Giovani The patient is unaccompanied. The patient was last seen 08/15/2022, Not on DMT. Since the patient's last visit the patient reports overall feeling stable. Patient denies any new or worsening neurologic symptoms. Recently stopped , ready to resume DMT. Has had a lot of difficulties with her son's allergies negatively impacting sleep but this has improved now that they know what his allergies are and he is sleeping better. Longstanding intermittent left facial numbness particularly when tired. No recent occurrence. SUBJECTIVE AND REVIEW OF SYSTEMS REVIEW OF SYSTEMS Refer to patient-entered data. Mood: PHQ9 responses reviewed and appear below Spasticity: None Bladder: Normal Bowel: Normal Pain related to today's visit:reviewed on nursing intake documentation Fatigue: Mild, See HPI Sleep: No problem/well Memory/Concentration: Normal Neuro-Qol Functions (higher = better functioning) 11/27/2023 08/15/2022 -- Upper Extremity Domain T Score 57 57 11/27/2023 08/15/2022 -- Lower Extremity Domain T Score 62 62 11/27/2023 08/15/2022 -- Cognitive Function Domain T Score 67 67 07/22/2019 04/19/2019 -- Positive Affect Well Being T Score 71.69 71.69 11/27/2023 08/15/2022 -- Ability To Participate In Social Roles T Score 63 63 11/27/2023 08/15/2022 -- Satisfaction With Social Roles T Score 62 62 Neuro-Qol Symptoms (higher = worse symptoms) 11/27/2023 08/15/2022 -- Sleep Domain T Score 32 32 11/27/2023 08/15/2022 -- Fatigue Domain T Score 42 42 11/27/2023 08/15/2022 -- Anxiety Domain T Score 45 52 11/27/2023 08/15/2022 -- Depression Domain T Score 38 46 11/27/2023 08/15/2022 -- Stigma Domain T Score 37 37 07/22/2019 04/19/2019 -- Emotional Behavior Dyscontrol T Score 29.51 29.51 *NeuroQoL is a multi-domain patient-reported quality of life questionnaire PHQ-9 Flowsheet Row Office Visit from 11/28/2023 in [facility] Office Visit from 08/15/2022 in [facility] PHQ-9 Score 0 0 *PHQ-9 is a questionnaire for depressive symptoms, with scores 0-4 indicating none, 5-9 mild, 10-14 moderate, 15-19 moderately severe, and 20-27 severe symptoms. PROMIS-10 Flowsheet Row Office Visit from 11/28/2023 in [facility] Office Visit from 08/15/2022 in [facility] Global Physical Health T Score 57.7 57.7 Global Mental Health T Score 59 50.8 0-10 Standard Pain Scale 5 5 *PROMIS-10 is a patient-reported quality of life measure, typically reported as physical and mental domains. Here scores are expressed as percentiles, where the lowest possible score is one, the highest possible score is 99, and 50 is average. PAST HISTORY was reviewed and updated PAST MEDICAL HISTORY Diagnosis Date Multiple sclerosis (HCC) PAST SURGICAL HISTORY Procedure Laterality Date NONE MEDICATIONS and ALLERGIES were reviewed and updated. SOCIAL HISTORY was reviewed and updated: Social History Tobacco Use Smoking status: Former Packs/day: 0.25 Years: 4.00 Additional pack years: 0.00 Total pack years: 1.00 Types: Cigarettes Smokeless tobacco: Never Tobacco comments: Quit smoking in 2013 Living situation: Living at home without assistance Employment Status / Disability: Full-time [employer] BP 114/66 Pulse 102 Ht 160 cm (5' 3 ) Wt 78.8 kg (173 lb 11.2 oz) LMP 11/15/2023 BMI 30.77 kg/m? Multiple Sclerosis Performance Test Flowsheet [facility] Office Visit from 11/28/2023 in [facility] Office Visit from more content not included)... Normal [facility] BRAIN & CERVICAL SPINE MRI D [facility] DATAon 10-08-2023 Brain Enhancing Lesions None [facility] Brain Interval Improvement None [facility] Brain New T2 Lesions None Site [facility] Brain Other Significant MRI Findings Prominent perivascular space in the left basal ganglia. Trace right mastoid and middle ear effusion. [facility] Brain Parenchymal Volume Loss None [facility] Brain T2 [place] of Disease Mild [facility] MRI BRAIN WO/W IVCONon 10-08 MRI BRAIN WO/W IVCON * * *Final Report* * * DATE OF EXAM: Oct 08 2023 3:28PM [facility] 0295 - MRI BRAIN WO/W IVCON / PROCEDURE REASON: Multiple sclerosis (HCC) * * * * Physician Interpretation * * * * EXAMINATION: MRI BRAIN WO/W IVCON HISTORY: Multiple sclerosis. Routine follow-up Onset: 11/2013 Diagnosis of MS: 07/2015 (active MRI) Disease course at onset: relapsing-remitting Current disease course: relapsing-remitting TECHNIQUE: Brain MRI with demyelinating disease protocol with and without IV gadolinium. MQ: [id number] Contrast: 15 mL Dotarem IV COMPARISON: MRI brain 08/15/2022 for continued multiple sclerosis follow-up, demonstrating no new T2 lesions. RESULT: MR BRAIN: Parenchymal Findings: There are multiple foci of hyperintensity on FLAIR and T2 within the white matter, compatible with the clinical diagnosis of multiple sclerosis. New T2 Lesions: None Site(s) of New/Larger T2 Lesion(s): Not applicable Interval Improvement: None. New Enhancing Lesions: None T2 [place] of Disease: Mild. Parenchymal Volume Loss: None. Other Significant Findings: Prominent perivascular space in the left basal ganglia. Trace right mastoid and middle ear effusion. *Note:? The definition of new T2 Lesions includes both new and enlarging plaques on T2-weighted FLAIR images (new lesions greater than or equal to 5mm3 or an increase in diameter of an existing lesion by greater than or equal to 2mm). IMPRESSION: Multiple intracranial white matter lesions compatible with multiple sclerosis. No new T2 lesions and no new enhancing lesions. No significant parenchymal volume loss. Other Significant Intracranial Findings: None Aircraft Engine Specialist: PSCB Transcribe Date/Time: Oct 08 2023 3:33P Dictated by : BIBIANA SCOTT MD This examination was interpreted and the report reviewed and electronically signed by: ADAM SOUSA MD on Oct 08 2023 4:03PM EST [id number] N Normal [facility] BRAIN & CERVICAL SPINE MRI D [facility] DATAon 08-15-2022 Brain Enhancing Lesions None [facility] Brain Interval Improvement None [facility] Brain New T2 Lesions None Site [facility] Brain Other Significant MRI Findings None. [facility] Brain Parenchymal Volume Loss None [facility] Brain T2 [place] of Disease Mild [facility] MRI BRAIN WO/W IVCONon 08-15 [facility] CBC AUTO DIFFon 06-18-2022 BASO # 0.0 103/ul Normal 0.0-0.1 [facility] Comment on above: Performed By: #### H IV12 #### [facility] [address] [place] [address] Dr. Shwetha Cordoba Basophils/100 WBC (Bld) 0.3 % Normal 0.2-2.0 [facility] Comment on above: Performed By: #### H IV12 #### [facility] [address] [place] [address] Dr. Shwetha Cordoba EO # 0.1 103/ul Normal 0.0-0.7 [facility] Comment on above: Performed By: #### H IV12 #### [facility] [address] [place] [address] Dr. Shwetha Cordoba Eosinophils/100 WBC (Bld) 0.8 % Critically low 0.9-7.0 [facility] Comment on above: Performed By: #### H IV12 #### [facility] [address] [place] [address] Dr. Shwetha Cordoba Erythrocyte distribution width (RBC) [Ratio] 13.9 % Normal 11.0-15.0 [facility] Comment on above: Performed By: #### H IV12 #### [facility] [address] [place] [address] Dr. Shwetha Cordoba Hematocrit (Bld) [Volume fraction] 29.3 % Critically low 36.0-48.0 [facility] Comment on above: Performed By: #### H IV12 #### [facility] [address] [place] [address] Dr. Shwetha Cordoba Hemoglobin (Bld) [Mass/Vol] 9.3 g/dL Critically low 12.0-16.0 [facility] Comment on above: Performed By: #### H IV12 #### [facility] [address] [place] [address] Dr. Shwetha Cordoba IG # 0.03 10e3/ul Normal 0.00-0.03 [facility] Comment on above: Performed By: #### H IV12 #### [facility] [address] [place] [address] Dr. Shwetha Cordoba IG % 0.3 % Normal 0.0-0.5 [facility] Comment on above: Performed By: #### H IV12 #### [facility] [address] [place] [address] Dr. Shwetha Cordoba LYMPH # 2.3 103/ul Normal 1.2-3.8 [facility] Comment on above: Performed By: #### H IV12 #### [facility] [address] [place] [address] Dr. Shwetha Cordoba Lymphocytes/100 WBC (Bld) 21.5 % Normal 20.5-60.0 [facility] Comment on above: Performed By: #### H IV12 #### [facility] [address] [place] [address] Dr. Shwetha Cordoba MANUAL DIFF REQ NO Normal [facility] Comment on above: Performed By: #### H IV12 #### [facility] [address] [place] [address] Dr. Shwetha Cordoba MCH (RBC) [Entitic mass] 27.2 pg Normal 26.7-34.0 [facility] Comment on above: Performed By: #### H IV12 #### [facility] [address] [place] [address] Dr. Shwetha Cordoba MCHC (RBC) [Mass/Vol] 31.7 g/dL Normal 29.9-35.2 [facility] Comment on above: Performed By: #### H IV12 #### [facility] [address] [place] [address] Dr. Shwetha Cordoba MCV (RBC) [Entitic vol] 85.7 fL Normal 81.0-99.0 [facility] Comment on above: Performed By: #### H IV12 #### [facility] [address] [place] [address] Dr. Shwetha Cordoba MONO # 0.9 103/ul Critically high 0.3-0.8 [facility] Comment on above: Performed By: #### H IV12 #### [facility] [address] [place] [address] Dr. Shwetha Cordoba Monocytes/100 WBC (Bld) 8.4 % Normal 1.7-12.0 [facility] Comment on above: Performed By: #### H IV12 #### [facility] [address] [place] [address] Dr. Shwetha Cordoba NEUT # 7.3 103/ul Critically high 1.4-6.5 [facility] Comment on above: Performed By: #### H IV12 #### [facility] [address] [place] [address] Dr. Shwetha Cordoba Neutrophils/100 WBC (Bld) 68.7 % Normal 43.0-75.0 [facility] Comment on above: Performed By: #### H IV12 #### [facility] [address] [place] [address] Dr. Shwetha Cordoba Platelet mean volume (Bld) [Entitic vol] 10.7 fL Normal 9.5-13.5 [facility] Comment on above: Performed By: #### H IV12 #### [facility] [address] [place] [address] Dr. Shwetha Cordoba PLT 178 103/ul Normal 150-450 [facility] Comment on above: Performed By: #### H IV12 #### [facility] [address] [place] [address] Dr. Shwetha Cordoba RBC 3.42 106/ul Critically low 4.20-5.40 [facility] Comment on above: Performed By: #### H IV12 #### [facility] [address] [place] [address] Dr. Shwetha Cordoba WBC 10.7 103/ul Normal 4.0-11.0 [facility] Comment on above: Performed By: #### H IV12 #### [facility] [address] [place] [address] Dr. Shwetha Cordoba CBC AUTO DIFFon 06-17-2022 BASO # 0.0 103/ul Normal 0.0-0.1 [facility] Comment on above: Performed By: #### C T/NGNA #### [facility] [address] [place] [address] Dr. Shwetha Cordoba Basophils/100 WBC (Bld) 0.4 % Normal 0.2-2.0 [facility] Comment on above: Performed By: #### C T/NGNA #### [facility] [address] [place] [address] Dr. Shwetha Cordoba EO # 0.1 103/ul Normal 0.0-0.7 [facility] Comment on above: Performed By: #### C T/NGNA #### [facility] [address] [place] [address] Dr. Shwetha Cordoba Eosinophils/100 WBC (Bld) 1.3 % Normal 0.9-7.0 [facility] Comment on above: Performed By: #### C T/NGNA #### [facility] [address] [place] [address] Dr. Shwetha Cordoba Erythrocyte distribution width (RBC) [Ratio] 13.7 % Normal 11.0-15.0 [facility] Comment on above: Performed By: #### C T/NGNA #### [facility] [address] [place] [address] Dr. Shwetha Cordoba Hematocrit (Bld) [Volume fraction] 35.3 % Critically low 36.0-48.0 [facility] Comment on above: Performed By: #### C T/NGNA #### [facility] [address] [place] [address] Dr. Shwetha Cordoba Hemoglobin (Bld) [Mass/Vol] 11.3 g/dL Critically low 12.0-16.0 [facility] Comment on above: Performed By: #### C T/NGNA #### [facility] [address] [place] [address] Dr. Shwetha Cordoba IG # 0.03 10e3/ul Normal 0.00-0.03 [facility] Comment on above: Performed By: #### C T/NGNA #### [facility] [address] [place] [address] Dr. Shwetha Cordoba IG % 0.3 % Normal 0.0-0.5 [facility] Comment on above: Performed By: #### C T/NGNA #### [facility] [address] [place] [address] Dr. Shwetha Cordoba LYMPH # 2.2 103/ul Normal 1.2-3.8 [facility] Comment on above: Performed By: #### C T/NGNA #### [facility] [address] [place] [address] Dr. Shwehta Cordoba Lymphocytes/100 WBC (Bld) 24.5 % Normal 20.5-60.0 [facility] Comment on above: Performed By: #### C T/NGNA #### [facility] [address] [place] [address] Dr. Shwetha Cordoba MANUAL DIFF REQ NO Normal [facility] Comment on above: Performed By: #### C T/NGNA #### [facility] [address] [place] [address] Dr. Shwetha Cordoba MCH (RBC) [Entitic mass] 27.2 pg Normal 26.7-34.0 [facility] Comment on above: Performed By: #### C T/NGNA #### [facility] [address] [place] [address] Dr. Shwetha Cordoba MCHC (RBC) [Mass/Vol] 32.0 g/dL Normal 29.9-35.2 [facility] Comment on above: Performed By: #### C T/NGNA #### [facility] [address] [place] [address] Dr. Shwetha Cordoba MCV (RBC) [Entitic vol] 84.9 fL Normal 81.0-99.0 [facility] Comment on above: Performed By: #### C T/NGNA #### [facility] [address] [place] [address] Dr. Shwetha Cordoba MONO # 0.8 103/ul Normal 0.3-0.8 [facility] Comment on above: Performed By: #### C T/NGNA #### [facility] [address] [place] [address] Dr. Shwetha Cordoba Monocytes/100 WBC (Bld) 8.9 % Normal 1.7-12.0 [facility] Comment on above: Performed By: #### C T/NGNA #### [facility] [address] [place] [address] Dr. Shwetha Cordoba NEUT # 5.8 103/ul Normal 1.4-6.5 [facility] Comment on above: Performed By: #### C T/NGNA #### [facility] [address] [address] [address] Shwetha Cordoba Neutrophils/100 WBC (Bld) 64.6 % Normal 43.0-75.0 [facility] Comment on above: Performed By: #### C T/NGNA #### [facility] [address] [address] [address] Shwetha Cordoba Platelet mean volume (Bld) [Entitic vol] 10.5 fL Normal 9.5-13.5 [facility] Comment on above: Performed By: #### C T/NGNA #### [facility] [address] [address] [address] Shwetha Cordoba PLT 222 103/ul Normal 150-450 [facility] Comment on above: Performed By: #### C T/NGNA #### [facility] [address] [address] [address] Shwetha Cordoba RBC 4.16 106/ul Critically low 4.20-5.40 [facility] Comment on above: Performed By: #### C T/NGNA #### [facility] [address] [address] [address] Shwetha Cordoba WBC 9.0 103/ul Normal 4.0-11.0 [facility] Comment on above: Performed By: #### C T/NGNA #### [facility] [address] [address] [address] Shwetha Cordoba Covid-19 PCR ([facility])on 06-01 SARS-CoV-2 (COVID-19) RNA MYRON+probe Ql (Unsp spec) Not detected Normal NOT DETECTED [facility] Comment on above: Result Comment: When diagnostic testing is negative, the possibility of a false negative should be considered in the context of a patient's recent exposures and the presence of clinical signs and symptoms consistent with SARS-CoV-2. This test is not yet approved or cleared by the [place] FDA. When there are no FDA-approved or cleared tests available, and other criteria are met, FDA can make tests available under an emergency access mechanism called an Emergency Use Authorization (EUA). The EUA for this test is supported by the [place] of Health and Human Service's declaration that circumstances exist to justify the emergency use of in vitro diagnostics for the detection and/or diagnosis of the virus that causes COVID-19. This EUA will remain in effect for the duration of the COVID-19 declaration justifying emergency of IVDs, unless it is terminated or revoked by the FDA (after which the test may no longer be used). Performed By: #### H IV12 #### [facility] [address] [place] [address] Dr. Shwetha Cordoba DRUG SCREEN RAPID (URINE)on 06-17-2022 AMP Negative Normal NEGATIVE [facility] Comment on above: Performed By: #### H IV12 #### [facility] [address] [place] [address] Dr. Shwetha oCrdoba BAR Negative Normal NEGATIVE [facility] Comment on above: Performed By: #### H IV12 #### [facility] [address] [place] [address] Dr. Shwetha Cordoba BUP Negative Normal NEGATIVE [facility] Comment on above: Performed By: #### H IV12 #### [facility] [address] [place] [address] Dr. Shwetha Cordoba BZO Negative Normal NEGATIVE [facility] Comment on above: Performed By: #### H IV12 #### [facility] [address] [place] [address] Dr. Shwetha Cordoba JANUSZ Negative Normal NEGATIVE [facility] Comment on above: Performed By: #### H IV12 #### [facility] [address] [place] [address] Dr. Shwetha Cordoba CUT-OFFS SEE BELOW Normal [facility] Comment on above: Result Comment: AMP (Amphetamine): 500ng/mL, BAR (Barbituates): 200 ng/mL, BZO (Benzodiazepines): 150 ng/mL, BUP (Buprenorphine): 10 ng/mL, JANUSZ (Cocaine): 150 ng/mL, mAMP (Methamphetamine): 500 ng/mL, MTD (Methadone): 200 ng/mL, OPI (Opiates): 100 ng/mL, OXY (Oxycodone): 100 ng/mL, PCP (Phencyclidine): 25 ng/mL, PPX (Propoxyphene): 300 ng/mL, THC (Cannabinoids): 50 ng/mL, TCA (Trycyclic Antidepressants): 300 ng/mL Performed By: #### H IV12 #### [facility] [address] [place] [address] Dr. Shwetha Cordoba DRUG CUT HEADER DRUG CLASS TEST SYSTEM CUT-OFF CONCENTRATIONS ARE FOLLOWS: Normal [facility] Comment on above: Performed By: #### H IV12 #### [facility] [address] [place] [address] Dr. Shwetha Cordoba mAMP Negative Normal NEGATIVE [facility] Comment on above: Performed By: #### H IV12 #### [facility] [address] [place] [address] Dr. Shwetha Cordoba MTD Negative Normal NEGATIVE [facility] Comment on above: Performed By: #### H IV12 #### [facility] [address] [place] [address] Dr. Shwetha Cordoba OPI Negative Normal NEGATIVE [facility] Comment on above: Performed By: #### H IV12 #### [facility] [address] [place] [address] Dr. Shwetha Cordoba OXY Negative Normal NEGATIVE [facility] Comment on above: Performed By: #### H IV12 #### [facility] [address] [place] [address] Dr. Shwetha Cordoba PCP Negative Normal NEGATIVE [facility] Comment on above: Performed By: #### H IV12 #### [facility] [address] [place] [address] Dr. Shwetha Cordoba PPX Negative Normal NEGATIVE [facility] Comment on above: Performed By: #### H IV12 #### [facility] [address] [place] [address] Dr. Shwetha Cordoba TCA Negative Normal NEGATIVE [facility] Comment on above: Performed By: #### H IV12 #### [facility] [address] [place] [address] Dr. Shwetha Cordoba THC Negative Normal NEGATIVE [facility] Comment on above: Performed By: #### H IV12 #### [facility] [address] [address] [address] Shwetha Cordoba TYPE AND SCREENon 06-17-2022 TYPE AND SCREEN Negative Normal [facility] Comment on above: Performed By: #### G LU1HR #### [facility] [address] [address] [address] Shwetha Cordoba US PREG GROWTHon 06-12-2022 US PREG GROWTH EXAMINATION: US PREG GROWTH HISTORY: Disease of nervous system complicating , childbirth and puerperium COMPARISON: Ultrasound growth 05/14/2022 FINDINGS: Heart Rate: 128.6 bpm Number: 1.0 Position: CEPHALIC Amniotic Fluid Volume: 14.5 cm Maximum Vertical Pocket: 7.6 cm BIOMETRY: BPD: 9.5 cm cm; 38 weeks 4 days; 79% HC: 33.1 cmcm; 37 weeks 5 days; 70% AC: 35.6 cm cm; 39 weeks 4 days; 89% FL: 6.8 cm cm; 35 weeks 1 days; <3% EFW: 3443.7 grams; 59% FL/AC: 19.2 FL/BPD: 72.1 HC/AC: 0.9 GESTATIONAL AGE: Age by EDC: 38 weeks 4 days NITHIN by EDC: 06/21/2022 Age by US: 37 weeks 5 days NITHIN by US: 06/27/2022 IMPRESSION: 1. Single live intrauterine with growth detailed above. 2. Femur length is less than 3rd percentile. Electronically authenticated by: MAC PRINCE Date: 2022-06-11 22:25 Normal [facility] US PREG BIOPHY W NON STRESSo n 06-11-2022 US PREG BIOPHY W NON STRESS EXAMINATION: US PREG BIOPHY W NON STRESS HISTORY: Gestation period, 30 weeks COMPARISON: Ultrasound biophysical 06/04/2022 TECHNIQUE: Ultrasound biophysical profile was performed. FINDINGS: BREATHING MOVEMENTS: 2.0 GROSS BODY MOVEMENTS: 2.0 TONE: 2.0 QUALITATIVE AMNIOTIC FLUID VOLUME: 2.0 PRESENTATION: CEPHALIC HEART RATE: 128.6 bpm bpm. AMNIOTIC FLUID VOLUME: 14.5 cm GESTATIONAL AGE: 38 weeks 4 days CONCLUSION: Total biophysical profile score 8.0. Electronically authenticated by: MAC PRINCE Date: 2022-06-11 21:55 Normal [facility] US PREG BIOPHY W NON STRESSo n 06-04-2022 US PREG BIOPHY W NON STRESS EXAMINATION: US PREG BIOPHY W NON STRESS HISTORY: Disease of nervous system complicating , childbirth and puerperium COMPARISON: Ultrasound biophysical 05/28/2022 TECHNIQUE: Ultrasound biophysical profile was performed. FINDINGS: BREATHING MOVEMENTS: 2.0 GROSS BODY MOVEMENTS: 2.0 TONE: 2.0 QUALITATIVE AMNIOTIC FLUID VOLUME: 2.0 PRESENTATION: Cephalic HEART RATE: 159.8 bpm bpm. AMNIOTIC FLUID VOLUME: 17.2 cm GESTATIONAL AGE: 37 weeks 4 days CONCLUSION: Total biophysical profile score 8.0. Electronically authenticated by: MAC PRINCE Date: 2022-06-04 20:58 Normal [facility] US PREG BIOPHY W NON STRESSo n 05-28-2022 US PREG BIOPHY W NON STRESS EXAMINATION: US PREG BIOPHY W NON STRESS HISTORY: Disease of nervous system complicating , childbirth and puerperium COMPARISON: No relevant comparison available. TECHNIQUE: Ultrasound biophysical profile was performed in the radiology department. FINDINGS: BREATHING MOVEMENTS: 2.0 GROSS BODY MOVEMENTS: 2.0 TONE: 2.0 QUALITATIVE AMNIOTIC FLUID VOLUME: 2.0 PRESENTATION: Cephalic HEART RATE: 130.4 bpm H.B./min AMNIOTIC FLUID VOLUME: 17.9 cm cm GESTATIONAL AGE: 36 weeks 4 days CONCLUSION: Total biophysical profile score: 8.0 Electronically authenticated by: MCKAYLA FRAZIER Date: 2022-05-28 17:19 Normal [facility] GROUP B STREP CULTUREon 05-03 S. agalactiae Ag Ql (Unsp spec) Culture Observations: NEGATIVE FOR GROUP B STREPTOCOCCUS. Normal [facility] Comment on above: Performed By: #### G LU1 #### [facility] [address] [place] [address] Dr. Shwetha Cordoba US PREG BIOPHY W NON STRESSo n 05-21-2022 US PREG BIOPHY W NON STRESS EXAMINATION: US PREG BIOPHY W NON STRESS HISTORY: Gestation period, 30 weeks COMPARISON: Ultrasound biophysical 05/14/2022 TECHNIQUE: Ultrasound biophysical profile was performed. FINDINGS: BREATHING MOVEMENTS: 2.0 GROSS BODY MOVEMENTS: 2.0 TONE: 2.0 QUALITATIVE AMNIOTIC FLUID VOLUME: 2.0 PRESENTATION: CEPHALIC HEART RATE: 127.4 bpm bpm. AMNIOTIC FLUID VOLUME: 14.5 cm GESTATIONAL AGE: 35 weeks 4 days CONCLUSION: Total biophysical profile score 8.0. Electronically authenticated by: MAC PRINCE Date: 2022-05-21 16:37 Normal [facility] US PREG BIOPHY W NON STRESSo n 05-15-2022 US PREG BIOPHY W NON STRESS EXAMINATION: US PREG BIOPHY W NON STRESS HISTORY: Gestation period, 30 weeks COMPARISON: No relevant comparison available. TECHNIQUE: Ultrasound biophysical profile was performed in the radiology department. FINDINGS: BREATHING MOVEMENTS: 2.0 GROSS BODY MOVEMENTS: 2.0 TONE: 2.0 QUALITATIVE AMNIOTIC FLUID VOLUME: 2.0 PRESENTATION: Cephalic HEART RATE: 136.4 bpm H.B./min AMNIOTIC FLUID VOLUME: 16.6 cm cm GESTATIONAL AGE: 34 weeks 4 days CONCLUSION: Total biophysical profile score: 8.0 Electronically authenticated by: MCKAYLA FRAZIER Date: 2022-05-15 16:[address] [facility] PREG GROWTHon 05-14-2022 US PREG GROWTH EXAMINATION: US PREG GROWTH HISTORY: Disease of nervous system complicating , childbirth and puerperium COMPARISON: Ultrasound growth 04/01/2022 FINDINGS: Heart Rate: 136.4 bpm Number: 1.0 Position: Cephalic Amniotic Fluid Volume: 16.6 cm Maximum Vertical Pocket: 7.8 cm BIOMETRY: BPD: 9.0 cm cm; 36 weeks 4 days HC: 31.3 cmcm; 35 weeks 0 days AC: 31.3 cm cm; 35 weeks 2 days FL: 6.5 cm cm; 33 weeks 4 days EFW: 2541.6 gram; 55% FL/AC: 20.8 FL/BPD: 72.1 HC/AC: 1.0 GESTATIONAL AGE: Age by EDC: 34 weeks 4 days NITHIN by EDC: 06/21/2022 Age by US: 35 weeks, 1 day NITHIN by US: 06/17/2022 IMPRESSION: 1. Single live intrauterine with growth detailed above. Electronically authenticated by: MAC PRINCE Date: 2022-05-14 16:47 Normal [facility] US PREG BIOPHY W NON STRESSo n 05-07-2022 US PREG BIOPHY W NON STRESS EXAMINATION: US PREG BIOPHY W NON STRESS HISTORY: Gestation period, 30 weeks COMPARISON: No relevant comparison available. TECHNIQUE: Ultrasound biophysical profile was performed in the radiology department. FINDINGS: BREATHING MOVEMENTS: 2.0 GROSS BODY MOVEMENTS: 2.0 TONE: 2.0 QUALITATIVE AMNIOTIC FLUID VOLUME: 2.0 PRESENTATION: CEPHALIC HEART RATE: 129.2 bpm H.B./min AMNIOTIC FLUID VOLUME: 15.5 cm cm GESTATIONAL AGE: 33 weeks 4 days CONCLUSION: Total biophysical profile score: 8.0 Electronically authenticated by: MCKAYLA FRAZIER Date: 2022-05-07 19:13 Normal [facility] US PREG BIOPHY W NON STRESSo n 04-29-2022 US PREG BIOPHY W NON STRESS EXAMINATION: US PREG BIOPHY W NON STRESS HISTORY: Gestation period, 30 weeks COMPARISON: Ultrasound growth 04/01/2022 TECHNIQUE: Ultrasound biophysical profile was performed. FINDINGS: BREATHING MOVEMENTS: 2.0 GROSS BODY MOVEMENTS: 2.0 TONE: 2.0 QUALITATIVE AMNIOTIC FLUID VOLUME: 2.0 PRESENTATION: CEPHALIC HEART RATE: 142.1 bpm bpm. AMNIOTIC FLUID VOLUME: 15.6 cm GESTATIONAL AGE: 32 weeks 3 days CONCLUSION: Total biophysical profile score 8.0. Electronically authenticated by: MAC PRINCE Date: 2022-04-29 17:00 Normal [facility] GLUCOSE - 1HRon 04-01-2022 Glucose [Mass/Vol] 92 mg/dL Normal 74-106 [facility] Comment on above: Performed By: #### G LU1HR #### [facility] [address] [place] [address] Dr. Shwetha Cordoba HEMOGRAM AND PLATELon 2021 Hematocrit (Bld) [Volume fraction] 35.0 % Critically low 36.0-48.0 [facility] Comment on above: Performed By: #### H IV12 #### [facility] [address] [place] [address] Dr. Shwetha Cordoba Hemoglobin (Bld) [Mass/Vol] 11.2 g/dL Critically low 12.0-16.0 [facility] Comment on above: Performed By: #### H IV12 #### [facility] [address] [address] [address] Shwetha Cordoba MCH (RBC) [Entitic mass] 27.9 pg Normal 26.7-34.0 [facility] Comment on above: Performed By: #### H IV12 #### [facility] [address] [address] [address] Shwetha Cordoba MCHC (RBC) [Mass/Vol] 32.0 g/dL Normal 29.9-35.2 [facility] Comment on above: Performed By: #### H IV12 #### [facility] [address] [address] [address] Shwetha Cordoba MCV (RBC) [Entitic vol] 87.3 fL Normal 81.0-99.0 [facility] Comment on above: Performed By: #### H IV12 #### [facility] [address] [place] [address] Dr. Shwetha Cordoba PLT 242 103/ul Normal 150-450 [facility] Comment on above: Performed By: #### H IV12 #### [facility] [address] [address] [address] Shwetha Cordoba RBC 4.01 106/ul Critically low 4.20-5.40 [facility] Comment on above: Performed By: #### H IV12 #### [facility] [address] [place] [address] Dr. Shwetha Cordoba WBC 8.5 103/ul Normal 4.0-11.0 [facility] Comment on above: Performed By: #### H IV12 #### [facility] [address] [place] [address] Dr. Shwetha Cordoba US PREG GROWTHon 04-01-2022 US PREG GROWTH EXAMINATION: US PREG GROWTH HISTORY: Disease of nervous system complicating , childbirth and puerperium ; multiple sclerosis COMPARISON: No relevant comparison available. FINDINGS: Heart Rate: 145.9 bpm Number: 1.0 Position: CEPHALIC Amniotic Fluid Volume: 16.4 cm Maximum Vertical Pocket: 4.9 cm BIOMETRY: BPD: 7.3 cm cm; 29 weeks 3 days; 72% HC: 27.1 cmcm; 29 weeks 4 days; 54% AC: 25.1 cm cm; 29 weeks 2 days; 71% FL: 5.3 cm cm; 28 weeks 1 days; 26% EFW: 1313.9 grams; 58% FL/AC: 21.0 FL/BPD: 72.0 HC/AC: 1.1 GESTATIONAL AGE: Age by EDC: 28 weeks 3 days NITHIN by EDC: 06/21/2022 Age by US: 29 weeks, 1 day NITHIN by US: 06/16/2022 IMPRESSION: 1. Single live intrauterine with growth detailed above. Electronically authenticated by: MAC BARRERAMEET Date: 2022-04-01 16:42 Normal [facility] AFP MATERNAL FOR SPINA BIFID Aon 02-02-2022 AFP MoM 0.89 Normal [facility] Comment on above: Performed By: #### A FPMAT #### [facility] [address] [address] [address] Shwetha Cordoba AFP Value 47.4 ng/mL Normal [facility] Comment on above: Performed By: #### A FPMAT #### [facility] [address] [address] [address] Shwetha Cordoba AFP, Serum for Spina Bifida Report Normal [facility] Comment on above: Performed By: #### A FPMAT #### [facility] [address] [address] [address] Shwetha Cordoba Comment Comment Normal [facility] Comment on above: Result Comment: Farida Quezada, Ph.D., [facility] Director . References: Available Upon Request. . Multiples Of Median Cutoffs For AFP Elevations Quinones 2.5 Black 2.8 IDD 2.0 Twins 4.5 Abbreviation Definitions IDD - Insulin Dep Diabetes OSBR - Open Spina Bifida Risk . For further inquiries contact [employer] [facility] at [phone]. Performed By: #### A FPMAT #### [facility] [address] [address] [address] Shwetha Cordoba Gest Age Collection Date 19.9 weeks Normal [facility] Comment on above: Performed By: #### A FPMAT #### [facility] [address] [place] [address] Dr. Shwetha Cordoba Gestat, Age Based on LMP [facility] Comment on above: Result Comment: 09/01 Recalculations are not recommended when gestational dating by LMP and ultrasound are within 10 days. Performed By: #### A FPMAT #### [facility] [address] [place] [address] Dr. Shwetha Cordoba Insulin Dep Diabetes No Normal [facility] Comment on above: Performed By: #### A FPMAT #### [facility] [address] [place] [address] Dr. Shwetha Cordoba Interpretation Comment Normal [facility] Comment on above: Result Comment: Inte rpretation: Screen Negative . This result is screen negative for OSB. The AFP MoM calculated is based on the gestational age provided. MS-AFP can identify up to 80% of open neural tube defects. Closed neural tube defects and some open defects may not be detected by this test. This test does not screen for Down Syndrome or Trisomy 18. If screening for Down Syndrome or Trisomy 18 is desired, contact [employer] to discuss available options. The [employer] recommends amniocentesis be offered to women age 35 and older. Performed By: #### A FPMAT #### [facility] [address] [place] [address] Dr. Shwetha Cordoba [age] Normal [facility] Comment on above: Performed By: #### A FPMAT #### [facility] [address] [place] [address] Dr. Shwetha Cordoba Multiple Gestation No Normal [facility] Comment on above: Performed By: #### A FPMAT #### [facility] [address] [place] [address] Dr. Shwetha Cordoba [place] [address] [place] [id number] [facility] Comment on above: Performed By: #### A FPMAT #### [facility] [address] [place] [address] Dr. Shwetha Cordoba PDF . Normal [facility] Comment on above: Performed By: #### A FPMAT #### [facility] [address] [place] [address] Dr. Shwetha Cordoba Race Normal [facility] Comment on above: Performed By: #### A FPMAT #### [facility] [address] [place] [address] Dr. Shwetha Cordoba Test Results: Negative Normal [facility] Comment on above: Performed By: #### A FPMAT #### [facility] [address] [place] [address] Dr. Shwetha Cordoba PAP ACOG PANEL 2: 30 to 65on 01-10-2022 . . Normal [facility] Comment on above: Result Comment: Perf ormed at: WB Performed By: #### [id number] #### [facility] [address] [place] [address] Dr. Shwetha Cordoba Age Gdln ACOG Testing 30-65 [facility] Comment on above: Performed By: #### 4 [id number] #### [facility] [address] [place] [address] Dr. Shwetha Cordoba DIAGNOSIS: Comment Normal [facility] Comment on above: Result Comment: NEGA TIVE FOR INTRAEPITHELIAL LESION OR MALIGNANCY. THIS SPECIMEN WAS RESCREENED PART OF OUR [employer] AND BUS [employer] MECHANIC PROGRAM. Performed at: WB Performed By: #### [id number] #### [facility] [address] [place] [address] Dr. Shwetha Cordoba HPV Aptima Negative Normal Negative [facility] Comment on above: Result Comment: This nucleic acid amplification test detects fourteen high-risk HPV types (16,18,31,33,35,39,45,51,52,56,58,59,66,68) without differentiation. Performed at: =G Performed By: #### 4 [id number] #### [facility] [address] [place] [address] Dr. Shwetha Cordoba Methodology: Comment Normal [facility] Comment on above: Result Comment: This liquid based ThinPrep(R) pap test was screened with the use of an image guided system. Performed at: WB Performed By: #### [id number] #### [facility] [address] [place] [address] Dr. Shwetha Cordoba Note: Comment Normal [facility] Comment on above: Result Comment: The Pap smear is a screening test designed to aid in the detection of premalignant and malignant conditions of the uterine cervix. It is not a diagnostic procedure and should not be used as the sole means of detecting cervical cancer. Both false-positive and false-negative reports do occur. . Performed at: WB Performed By: #### 4 [id number] #### [facility] [address] [place] [address] Dr. Shwetha Cordoba Performed by: Comment Normal [facility] Comment on above: Result Comment: Zandra Fernández, Credit Collections Manager (ASCP) Performed at: WB Performed By: #### [id number] #### [facility] [address] [place] [address] Dr. Shwetha Cordoba QC reviewed by: Comment Normal [facility] Comment on above: Result Comment: Itzel Coleman, Credit Collections Manager (ASCP) Performed at: WB Performed By: #### [id number] #### [facility] [address] [place] [address] Dr. Shwetha Cordoba Specimen adequacy: Comment Normal [facility] Comment on above: Result Comment: Sati sfactory for evaluation. Endocervical and/or squamous metaplastic cells (endocervical component) are present. Performed at: WB Performed By: #### 4 [id number] #### [facility] [address] [place] [address] Dr. Shwetha Cordoba CHLAMYDIA/GONOCOCCUS MYRON (SW AB/URINE/PAPon 01-05-2022 Chlamydia trachomatis, MYRON Negative Normal Negative [facility] Comment on above: Performed By: #### C T/NGNA #### [facility] [address] [place] [address] Dr. Shwetha Cordoba Neisseria gonorrhoeae, MYRON Negative Normal Negative [facility] Comment on above: Performed By: #### C T/NGNA #### [facility] [address] [place] [address] Dr. Shwetha Cordoba VAGINITIS/VAGINOSIS DNA PROB Bo 01-04-2022 Jannet species Negative Normal Negative [facility] Comment on above: Performed By: #### G LU1HR #### [facility] [address] [place] [address] Dr. Shwetha Cordoba Gardnerella vaginalis Negative Normal Negative [facility] Comment on above: Performed By: #### G LU1HR #### [facility] [address] [place] [address] Dr. Shwetha Cordoba Trichomonas vaginalis Negative Normal Negative [facility] Comment on above: Performed By: #### G LU1HR #### [facility] [address] [place] [address] Dr. Shwetha Cordoba RUBELLA AB IGGon 12-06-2021 Rubella Antibodies, IgG 1.29 index Normal Immune >0.99 [facility] Comment on above: Result Comment: Non- immune <0.90 Equivocal 0.90 - 0.99 Immune >0.99 Performed By: #### R UBIGG #### [facility] [address] [place] [address] Dr. Shwetha Cordoba HEP B SURFACE ANTIGEN SCREEN on 12-05-2021 HBsAg Screen Negative Normal Negative [facility] Comment on above: Performed By: #### H IV12 #### [facility] [address] [place] [address] Dr. Shwetha Cordoba HEPATITIS C VIRUS AB W/ REFL EX QUANTon 12-05-2021 HCV AB 0.2 s/co ratio Normal 0.0-0.9 [facility] Comment on above: Performed By: #### H CVPCRR #### [facility] [address] [place] [address] Dr. Shwetha Cordoba Interpretation: Comment Normal [facility] Comment on above: Result Comment: Nega tive Not infected with HCV, unless recent infection is suspected or other evidence exists to indicate HCV infection. Performed By: #### H CVPCRR #### [facility] [address] [place] [address] Dr. Shwetha Cordoba HIV 1 AND 2 WITH REFLEXon HIV Screen 4th Generation wRfx Non-Reactive Normal Non Reactive [facility] Comment on above: Result Comment: HIV Negative HIV-1/HIV-2 antibodies and HIV-1 p24 antigen were NOT detected. There is no laboratory evidence of HIV infection. Performed By: #### H IV12 #### [facility] [address] [place] [address] Dr. Shwetha Cordoba RPR QUANTon 12-05-2021 Rapid Plasma Reagin, Quant Non-Reactive Normal NonRea<1:1 [facility] Comment on above: Result Comment: Jeremiah montano Note: This test does not meet current guidelines for screening and diagnosis of syphilis. This test is intended for following treatment response in patients being treated for syphilis infection. To screen for syphilis infection, a reflex cascade that includes both RPR and a treponema-specific assay should be utilized, such as Treponema pallidum (Syphilis) Screening Lamoure (199198) or Rapid Plasma Reagin (RPR) Test With Reflex to Quantitative RPR and Confirmatory Treponema pallidum Antibodies (096959). Performed By: #### R PRQ #### [facility] [address] [place] [address] Dr. Shwetha Cordoba CBC AUTO DIFFon 12-04-2021 BASO # 0.1 103/ul Normal 0.0-0.1 [facility] Comment on above: Performed By: #### C T/NGNA #### [facility] [address] [place] [address] Dr. Shwetha Cordoba Basophils/100 WBC (Bld) 0.4 % Normal 0.2-2.0 [facility] Comment on above: Performed By: #### C T/NGNA #### [facility] [address] [place] [address] Dr. Shwetha Cordoba EO # 0.5 103/ul Normal 0.0-0.7 [facility] Comment on above: Performed By: #### C T/NGNA #### [facility] [address] [place] [address] Dr. Shwetha Cordoba Eosinophils/100 WBC (Bld) 4.1 % Normal 0.9-7.0 [facility] Comment on above: Performed By: #### C T/NGNA #### [facility] [address] [place] [address] Dr. Shwetha Cordoba Erythrocyte distribution width (RBC) [Ratio] 13.5 % Normal 11.0-15.0 [facility] Comment on above: Performed By: #### C T/NGNA #### [facility] [address] [place] [address] Dr. Shwetha Cordoba Hematocrit (Bld) [Volume fraction] 38.2 % Normal 36.0-48.0 [facility] Comment on above: Performed By: #### C T/NGNA #### [facility] [address] [place] [address] Dr. Shwetha Cordoba Hemoglobin (Bld) [Mass/Vol] 12.1 g/dL Normal 12.0-16.0 [facility] Comment on above: Performed By: #### C T/NGNA #### [facility] [address] [place] [address] Dr. Shwetha Cordoba IG # 0.02 10e3/ul Normal 0.00-0.03 [facility] Comment on above: Performed By: #### C T/NGNA #### [facility] [address] [place] [address] Dr. Shwetha Cordoba IG % 0.2 % Normal 0.0-0.5 [facility] Comment on above: Performed By: #### C T/NGNA #### [facility] [address] [place] [address] Dr. Shwetha Cordoba LYMPH # 2.4 103/ul Normal 1.2-3.8 [facility] Comment on above: Performed By: #### C T/NGNA #### [facility] [address] [place] [address] Dr. Shwetha Cordoba Lymphocytes/100 WBC (Bld) 21.6 % Normal 20.5-60.0 [facility] Comment on above: Performed By: #### C T/NGNA #### [facility] [address] [place] [address] Dr. Shwetha Cordoba MANUAL DIFF REQ NO Normal [facility] Comment on above: Performed By: #### C T/NGNA #### [facility] [address] [address] [address] Shwetha Cordoba MCH (RBC) [Entitic mass] 27.5 pg Normal 26.7-34.0 [facility] Comment on above: Performed By: #### C T/NGNA #### [facility] [address] [place] [address] Dr. Shwetha Cordoba MCHC (RBC) [Mass/Vol] 31.7 g/dL Normal 29.9-35.2 [facility] Comment on above: Performed By: #### C T/NGNA #### [facility] [address] [place] [address] Dr. Shwetha Cordoba MCV (RBC) [Entitic vol] 86.8 fL Normal 81.0-99.0 [facility] Comment on above: Performed By: #### C T/NGNA #### [facility] [address] [place] [address] Dr. Shwetha Cordoba MONO # 0.8 103/ul Normal 0.3-0.8 [facility] Comment on above: Performed By: #### C T/NGNA #### [facility] [address] [place] [address] Dr. Shwetha Cordoba Monocytes/100 WBC (Bld) 6.7 % Normal 1.7-12.0 [facility] Comment on above: Performed By: #### C T/NGNA #### [facility] [address] [place] [address] Dr. Shwetha Cordoba NEUT # 7.5 103/ul Critically high 1.4-6.5 [facility] Comment on above: Performed By: #### C T/NGNA #### [facility] [address] [place] [address] Dr. Shwetha Cordoba Neutrophils/100 WBC (Bld) 67.0 % Normal 43.0-75.0 [facility] Comment on above: Performed By: #### C T/NGNA #### [facility] [address] [place] [address] Dr. Shwetha Cordoba Platelet mean volume (Bld) [Entitic vol] 9.1 fL Critically low 9.5-13.5 [facility] Comment on above: Performed By: #### C T/NGNA #### [facility] [address] [place] [address] Dr. Shwetha Cordoba PLT 276 103/ul Normal 150-450 [facility] Comment on above: Performed By: #### C T/NGNA #### [facility] [address] [place] [address] Dr. Shwetha Cordoba RBC 4.40 106/ul Normal 4.20-5.40 [facility] Comment on above: Performed By: #### C T/NGNA #### [facility] [address] [place] [address] Dr. Shwetha Cordoba WBC 11.1 103/ul Critically high 4.0-11.0 [facility] Comment on above: Performed By: #### C T/NGNA #### [facility] [address] [place] [address] Dr. Shwetha Cordoba CULTURE URINEon 12-04-2021 CULTURE URINE Culture Observations : MODERATE GROWTH OF MIXED GENITAL TODD. NO POTENTIAL PATHOGENS SEEN. Normal [facility] Comment on above: Performed By: #### U RCX #### [facility] [address] [place] [address] Dr. Shwetha Cordoba GLYCOHEMOGLOBIN A1Con 2021 ADA RECOMMENDATION ADA THERAPEUTIC TARGET 6.0 - 7.0 ACTION SUGGESTED > 7.0 Normal [facility] Comment on above: Performed By: #### H IV12 #### [facility] [address] [place] [address] Dr. Shwetha Cordoba Glucose [Mass/Vol] 94 mg/dL Normal [facility] Comment on above: Performed By: #### H IV12 #### [facility] [address] [place] [address] Dr. Shwetha Cordoba HbA1c (Bld) [Mass fraction] 4.9 % Normal <=6.0 [facility] Comment on above: Performed By: #### H IV12 #### [facility] [address] [place] [address] Dr. Shwetha Cordoba TYPE AND SCREENon 12-04-2021 TYPE AND SCREEN Negative Normal [facility] Comment on above: Performed By: #### T NS #### [facility] [address] [place] [address] Dr. Shwetha Cordoba US PREG TVon 11-16-2021 US PREG TV EXAMINATION: US PREG TV HISTORY: Irregular periods , viability COMPARISON: No relevant comparison available. FINDINGS: GESTATIONAL SAC: Present and normal appearing. POLE: Present and normal appearing. YOLK SAC: Present. CARDIAC: Present. UTERUS: Tiny subchorionic hematoma. OVARIES: Right: Corpus lutein cyst. Left: Normal. CERVIX: 4.1 cm in length and closed. CUL-DE-SAC: Normal. OTHER: None. AGE BY LMP: 9 weeks, 0 days NITHIN BY LMP: 06/21/2022 AGE BY US CRL: 8 weeks, 5 days NITHIN BY US CRL: 06/23/2022 IMPRESSION: 1. Single live intrauterine . Electronically authenticated by: MAC PRINCE Date: 2021-11-16 09:47 Normal [facility] Vital Signs Date Time Vital Sign Value Performing Clinician Facility 01-30-2024 16:48-0400 Body height 160.02 cm [facility] 01-30-2024 16:48-0400 Body mass index (BMI) [Ratio] 30.9 kg/m2 [facility] 01-30-2024 16:48-0400 Body temperature 98.8 [degF] [facility] 01-30-2024 16:48-0400 Body weight 79.37 kg [facility] 01-30-2024 16:48-0400 Diastolic blood pressure 82 mm[Hg] [facility] 01-30-2024 16:48-0400 Heart rate 77 /min [facility] 01-30-2024 16:48-0400 Respiratory rate 18 /min [facility] 01-30-2024 16:48-0400 SaO2% (BldA) [Mass fraction] 99 % [facility] 01-30-2024 16:48-0400 Systolic blood pressure 118 mm[Hg] [facility] 01-07-2024 14:30-0400 Body temperature 98.2 [degF] Infusion 9 Work Phone: [facility] 01-07-2024 14:30-0400 Diastolic blood pressure 84 mm[Hg] Infusion 9 Work Phone: [facility] 01-07-2024 14:30-0400 Heart rate 97 /min Infusion 9 Work Phone: [facility] 01-07-2024 14:30-0400 Systolic blood pressure 131 mm[Hg] Infusion 9 Work Phone: [facility] 12-24-2023 14:35-0400 Body temperature 98.29 [degF] Infusion 9 Work Phone: [facility] 12-24-2023 14:35-0400 Diastolic blood pressure 70 mm[Hg] Infusion 9 Work Phone: [facility] 12-24-2023 14:35-0400 Heart rate 100 /min Infusion 9 Work Phone: [facility] 12-24-2023 14:35-0400 Systolic blood pressure 116 mm[Hg] Infusion 9 Work Phone: [facility] 08-15-2022 14:36-0500 Body height 160 cm Soheila Matute APRN.GAS FITTER HELPER Work Phone: [facility] 08-15-2022 14:36-0500 Body weight 77.11 kg Soheila Matute APRN.GAS FITTER HELPER Work Phone: [facility] 08-15-2022 14:36-0500 Diastolic blood pressure 73 mm[Hg] Soheila Matute OPTIMIZATION MANAGER.GAS FITTER HELPER Work Phone: [facility] 08-15-2022 14:36-0500 Heart rate 87 /min Soheila Matute APRN.GAS FITTER HELPER Work Phone: [facility] 08-15-2022 14:36-0500 Systolic blood pressure 118 mm[Hg] Soheila Matute OPTIMIZATION MANAGER.GAS FITTER HELPER Work Phone: [facility] 04-08-2022 10:02-0400 Body height 160 cm Soheila Matute APRN.GAS FITTER HELPER Work Phone: [facility] 04-08-2022 10:02-0400 Body weight 87.09 kg Soheila Giovani COLLINS.GAS FITTER HELPER Work Phone: [facility] 04-08-2022 10:02-0400 Diastolic blood pressure 63 mm[Hg] Soheila Matute APRN.GAS FITTER HELPER Work Phone: [facility] 04-08-2022 10:02-0400 Heart rate 93 /min Soheila Matute APRN.GAS FITTER HELPER Work Phone: [facility] 04-08-2022 10:02-0400 Systolic blood pressure 104 mm[Hg] Soheila Giovani COLLINS.GAS FITTER HELPER Work Phone: [facility] 02-02-2022 03:06-0400 Body weight 79.[address] NUVIA YBARRA [facility] Comment on above: Performed By: #### AFPMAT #### [facility] [address] [address] [address] Shwetha Cordoba Encounters Encounter Date Encounter Type Care Provider Facility Start: 04-27-2024 End: 04-27-2024 ambulatory NUVIA YBARRA Not Available Start: 04-02-2024 End: 04-02-2024 ambulatory Soheila Zelaya Giovani GARCIA Work Phone: [facility] Comment on above: Multiple sclerosis ( HCC) (Primary Dx); Encounter for long-term (current) use of medications Start: 04-02-2024 End: 04-02-2024 Telemedicine consultation with patient Soheila Matute GAS FITTER HELPER Work Phone: [facility] Start: 02-17-2024 End: 02-17-2024 ambulatory [facility] Start: 01-30-2024 End: 01-30-2024 ambulatory [facility] Work Phone: Start: 01-30-2024 End: 01-30-2024 Patient encounter procedure [facility] Work Phone: Start: 01-13-2024 End: 01-14-2024 ambulatory [place] [facility] Start: 01-13-2024 Encounter for genera l adult medical examination without abnormal findings [facility] Start: 01-08-2024 End: 01-08-2024 ambulatory [facility] Start: 01-08-2024 Encounter for genera l adult medical examination without abnormal findings [facility] Start: 01-07-2024 End: 01-07-2024 ambulatory Infusion [facility] 9 Work Phone: [facility] Comment on above: Multiple sclerosis ( HCC) (Primary Dx) Start: 12-24-2023 End: 12-24-2023 ambulatory Infusion [place] [facility] 9 Work Phone: [facility] Comment on above: Multiple sclerosis ( HCC) (Primary Dx) Start: 12-18-2023 Orders Only Soheila son OPTIMIZATION MANAGER.GAS FITTER HELPER Work Phone: [facility] Start: 12-01-2023 End: 12-01-2023 ambulatory MCKAYLA ALEXIS Facility:[facility] Start: 11-28-2023 Chart abstracting Soheila salgado APRN.GAS FITTER HELPER Work Phone: [facility] Comment on above: Ocrevus Hermleigh Che klist Start: 11-28-2023 End: 11-28-2023 ambulatory SOHEILA MATUTE Facility:[facility] Start: 10-08-2023 End: 10-08-2023 ambulatory SOHEILA MATUTE Facility:[facility] Start: 10-08-2023 End: 10-08-2023 Subsequent hospital visit by physician Triny Pimentel (I-Stat/3t) Work Phone: Radiology Comment on above: Multiple sclerosis ( HCC) [G35] Start: 08-15-2022 End: 08-15-2022 Patient encounter procedure Soheila Matute OPTIMIZATION MANAGER.GAS FITTER HELPER Work Phone: [facility] Comment on above: Multiple sclerosis ( HCC) (Primary Dx) Start: 08-15-2022 End: 08-15-2022 Subsequent hospital visit by physician Triny Pimentel (I-Stat/3t) Work Phone: Radiology Comment on above: Multiple sclerosis ( HCC) [G35] Start: 06-23-[address] MCKAYLA WESTBROOK [facility] ity:H1 Start: 06-21-2022 End: 06-21-[address] MCKAYLA WESTBROOK Facility:[facility] Start: 06-17-2022 End: 06-19-2022 Evaluation and management of inpatient DR MARCOS CALLE Facility:[facility] Start: 06-14-2022 End: 06-14-[address] NUVIA YBARRA Facility:[facility] Start: 06-11-2022 End: 06-11-[address] NUVIA YBARRA Facility:[facility] Start: 06-07-2022 End: 06-07-[address] MARCOS CALLE Facility:[facility] Start: 06-04-2022 End: 06-04-[address] NUVIA YBARRA Facility:[facility] Start: 05-31-2022 End: 05-31-[address] NUVIA YBARRA Facility:[facility] Start: 05-28-2022 End: 05-28-[address] MCKAYLA FRAZIER Facility:[facility]1 Start: 05-27-2022 End: 05-27-[address] NUVIA YBARRA Facility:[facility] Start: 05-21-2022 End: 05-21-[address] NUVIA YBARRA Facility:[facility] Start: 05-14-2022 End: 05-14-[address] NUVIA YBARRA Facility:[facility] Start: 05-07-2022 End: 05-07-[address] NUVIA YBARRA Facility:[facility] Start: 04-29-2022 End: 04-29-[address] MCKAYLA WESTBROOK Facility:[facility] Start: 04-08-2022 End: 04-08-2022 Patient encounter procedure Soheila Matute APRN.GAS FITTER HELPER Work Phone: [facility] Comment on above: Multiple sclerosis ( HCC) (Primary Dx) Start: 04-01-2022 End: 04-02-[address] NUVIA YBARRA Facility:[facility] Start: 01-31-2022 End: 02-01-[address] NUVIA YBARRA Facility:[facility] Start: 01-03-2022 End: 01-03-[address] NUVIA YBARRA Facility:[facility] Start: 12-04-2021 End: 12-05-[address] NUVIA YBARRA Facility:[facility] Start: 11-16-2021 End: 11-17-[address] NUVIA YBARRA Facility:[facility]1 Procedures Date Procedure Procedure Detail Performing Clinician Start: 01-30-2024 Quick Strep (POC) Start: 10-08-2023 BRAIN & CERVICAL SPI NE MRI DISCRETE DATA [facility] Provider Start: 10-08-2023 Mri brain brain stem w/o w/contrast material Cynthia Mancera PA-C Work Phone: Start: 08-15-2022 BRAIN & CERVICAL SPI NE MRI DISCRETE DATA [facility] Provider Start: 08-15-2022 Mri brain brain stem w/o w/contrast material Soheila Matute APRN.GAS FITTER HELPER Work Phone: Start: 06-17-2022 Delivery of Products of Conception, External Approach DR NUVIA YBARRA Start: 06-17-2022 Division of Female Perineum, External Approach DR NUVIA YBARRA Start: 06-17-2022 Drainage of Amniotic Fluid, Therapeutic from Products of Conception, Via Natural or Artificial Opening DR NUVIA YBARRA Start: 06-17-2022 Introduction of Othe r Hormone into Peripheral Vein, Percutaneous Approach DR NUVIA YBARRA Start: 06-17-2022 Repair Perineum Skin , External Approach DR NUVIA YBARRA Start: 04-07-2022 Adult depression scr eening assessment Soheila Matute APRN.GAS FITTER HELPER Work Phone: Plan of Treatment Date Care Activity Detail Author Start: 06-19-2032 Urine microalbumin profile DTaP,Tdap,Td Vaccine (2 - Tdap) [facility] Start: 07-08-2024 End: 07-08-2024 Patient encounter procedure 07/08/2024 1:00 [place] [address] Soheila Matute APRN.GAS FITTER HELPER [address] [place] [address] ms [facility] Comment on above: ms Start: 07-08-2024 End: 07-08-2024 ambulatory 07/08/2024 8:00 AM EST Infusion [facility] [address] [place] [address] [facility] Comment on above: [facility] Start: 05-02-2024 Influenza vaccination C [facility] Start: 04-02-2024 End: 04-02-2024 Follow-up encounter 04/02/2024 10:00 AM EDT Ltac, Located Within [facility] [address] [address] Soheila Matute APRN.GAS FITTER HELPER [address] [place] [address] Follow up [facility] Comment on above: Follow up Start: 01-07-2024 End: 01-07-2024 ambulatory 01/07/2024 10:30 AM EDT [facility] [address] [place] [address] [facility] Comment on above: [facility] Start: 09-01-2023 Behavioral Health Screening Behavioral Health Screening [facility] Start: 09-01-2023 Depression Assessment Depression Ass essment [facility] Start: 05-02-2023 Covid-19 Vaccine ( season) Covid-19 Vaccine ( season) [facility] Start: 05-02-2023 Influenza vaccination Influenza Vacc ine (#1) [facility] Start: 04-07-2023 Adult depression screening assessment DEPRESSION SCREENING [facility] Start: 05-02-2022 Influenza vaccination INFLUENZA (#1) [facility] Start: 09-01-2021 DEPRESSION ASSESSMENT DEPRESSION ASS ESSMENT [facility] Start: 03-04-2021 COVID-19 VACCINE (3 - Booster for Moderna series) COVID-19 VACCINE (3 - Booster for Moderna series) [facility] Start: 11-30-2020 COVID-19 VACCINE (3 - Booster for Moderna series) COVID-19 VACCINE (3 - Booster for Moderna series) [facility] Start: 2018 HPV TESTING HPV TESTING [facility] Start: 2018 Screening for malign ant neoplasm of cervix HPV Testing [facility] Start: 2009 PAP TESTING PAP TESTING [facility] Start: 2009 Screening for malign ant neoplasm of cervix [facility] Start: 2007 Urine microalbumin profile DTAP,TDAP,TD (1 - Tdap) [facility] Start: 2006 Anxiety Screening Anxiety Screening [facility] Start: 2006 Depression Screening Depression Scre ening [facility] Start: 2006 HIV SCREENING HIV SCREENING [facility] Start: 2006 HIV screening HIV Screening [facility] End: 05-02-2025 MR Brain WO and W contrast IV MRI BRAIN WO/W IVCON Radiology Routine Multiple sclerosis (HCC) Encounter for long-term (current) use of medications 1 Occurrences starting 04/02/2024 until 05/02/2025 [facility] Work Phone: Comment on above: 1 Occurrences starti ng 04/02/2024 until 05/02/2025 End: 05-08-2023 Mri brain brain stem w/o w/contrast material MRI BRAIN WO/W IVCON Radiology Routine Multiple sclerosis (HCC) 1 Occurrences starting 04/08/2022 until 05/08/2023 [facility] Work Phone: Comment on above: 1 Occurrences starti ng 04/08/2022 until 05/08/2023 End: 09-14-2023 Mri brain brain stem w/o w/contrast material MRI BRAIN WO/W IVCON Radiology Routine Multiple sclerosis (HCC) 1 Occurrences starting 08/15/2022 until 09/14/2023 [facility] Work Phone: Comment on above: 1 Occurrences starti ng 08/15/2022 until 09/14/2023 [facility] c Immunizations Immunization Date Immunization Notes Care Provider Anay conde 07-02-2022 influenza nasal, unspecified formulation Soheila Matute APRN.[facility] Work Phone: [facility] Work Phone: 07-02-2022 influenza virus vaccine, unspecified formulation Mri (I-Stat/3t) Work Phone: [facility] 06-19-2022 diphtheria, tetanus toxoids and pertussis vaccine Soheila Giovani COLLINS.GAS FITTER HELPER Work Phone: [facility] Work Phone: 06-05-2020 influenza nasal, unspecified formulation Soheila Giovani COLLINS.GAS FITTER HELPER Work Phone: [facility] Work Phone: Payers Date Payer Category Payer Unknown [id number] 1988 Unknown [id number] 2.16.84 [id number] 1988 Unknown [id number] 2.16.84 0.1.393917.3.579.2.593 1988 Unknown [id number] 2.16.84 0.1.759437.3.579.2.593 1988 Unknown [id number] 2.16.84 0.1.875265.3.579.2.593 1988 Unknown [id number] 2.16.84 0.1.629956.3.579.2.593 1988 Unknown [id number] 2.16.84 0.1.512351.3.579.2.593 1988 Unknown [id number] 2.16.84 0.1.684026.3.579.2.593 1988 Unknown [id number] 2.16.84 0.1.516243.3.579.2.593 1988 Unknown [id number] 2.16.84 0.1.141415.3.579.2.593 1988 Unknown [id number] 2.16.84 0.1.411383.3.579.2.593 1988 Unknown [id number] 2.16.84 0.1.632346.3.579.2.593 1988 Unknown [id number] 2.16.84 0.1.343619.3.579.2.593 1988 Unknown [id number] 2.16.84 0.1.267991.3.579.2.593 1988 Unknown [id number] 2.16.84 0.1.061081.3.579.2.593 1988 Unknown [id number] 2.16.84 0.1.250874.3.579.2.593 1988 Unknown [id number] 2.16.84 0.1.916198.3.579.2.593 1988 Unknown [id number] 2.16.84 0.1.695566.3.579.2.593 1988 Unknown [id number] 2.16.84 0.1.598485.3.579.2.593 1988 Unknown [id number] 2.16.84 0.1.195216.3.579.2.593 1988 Unknown [id number] 2.16.8 40.1.048574.3.579.2.1286 1988 Unknown [id number] 2.16.8 40.1.588389.3.579.2.1286 1988 Unknown [id number] 2.16.8 40.1.340036.3.579.2.1286 1988 Unknown [id number] 2.16.84 0.1.022720.3.579.2.1259 1959 Unknown [id number] Social History Date Type Detail Facility [facility]: [facility] History of tobacco use Current smoker [facility] History of tobacco use Cigarette Smoker C [facility] Start: 04-08-2022 End: 10-08-2023 Cigarettes smoked current (pack per day) - Reported 0.3 [facility] Start: 04-08-2022 Tobacco use and exposure Smokeless tobacco non-user [facility] Start: 04-08-2022 End: 04-02-2024 Alcohol intake Current drinker of alcohol (finding) [facility] Start: 04-21-2014 History SDOH Alcohol Comment social [facility] Start: 04-08-2022 Tobacco Comment Quit smoking in 2013 [facility] Start: 09-28-2021 [facility] Start: 1990 Sex Assigned At Not on file C [facility] Start: 03-29-2022 End: 04-08-2022 Exposure to SARS-CoV-2 (event) Not sure [facility] Start: 08-15-2022 End: 10-08-2023 Tobacco use panel [facility] Adult Depression Screening Assessment 0 [facility] Start: 01-30-2024 Tobacco smoking stat us NHIS Never smoked tobacco (finding) [facility] Start: 1990 Sex Assigned At Female F [facility] Clinical Notes 04-08-2022 to 04-02-2024 Patient InstructionsSoheila Matute APRN.GAS FITTER HELPER - 04/02/2024 10:00 AM MELISSATSSoheila salgado APRN.CNP - 11/28/2023 9:42 AM Jermain Woodard RT(Kal[place]) - 10/08/2023 3:20 PM ESTPatient Instructions Note Date & Type Note Facility 04-02-2024 Instructions Soheila Matute APRN.CNP - 04/02/2024 10:25 AM EDT PLAN - Continue Ocrevus - Labwork: CD19, IgG, IgM with next infusion - MRI brain w/wo Gd 10/2024 documented in this encounter [facility] 04-02-2024 History of Present illness Narrative [facility]LE S[facility]EROS[facility] FOLLOWUP/ESTABLISHED PATIENT VISIT VIRTUAL VISIT PRINCIPAL NEUROLOGIC DIAGNOSIS: Multiple Sclerosis HISTORY OF ILLNESS Onset: 11/2013 Diagnosis of MS: 07/2015 (active MRI) Disease course at onset: relapsing-remitting Current disease course: relapsing-remitting Previous disease therapies: - Tecfidera 10/2015 - 05/2018. Stopped in order to become - Elected to start Gilenya 07/2015 but denied - Tecfidera 09/01/2019 - 12/10/2020 (restarted 09/01/2019 after . Stopped due to new lesions on MRI) - Ocrevus start 12/11/2020 & 12/25/2020. Last q6 month tx 06/13/2021 (cycle 2, held for family planning) Current disease therapy: Resumed Ocrevus 12/04/2023 & 01/07/2024 Most recent MRI brain: 10/08/2023 Most recent MRI cervical spine: not done Most recent MRI thoracic spine: not done CSF: 03/23/2014 (+) OCBs 3 JCV serology: 07/18/2015 0.11 (-) VZV Ig07/18/2015 (+) CHIEF COMPLAINT: Follow-up on MS disease modifying therapy INTERVAL HISTORY Usual treating team: Francis/Giovani The patient's appointment was conducted by virtual visit via [email or web address] with patient consent, unaccompanied. I have communicated my name and active licensure. The patient's identity and physical location were verified at the time of this visit. Either the patient or their legal market survey representative has been informed of the risks and benefits of -- and alternatives to -- treatment through a remote evaluation and consents to proceed with the evaluation remotely. The patient was last seen 11/28/2023, currently taking Ocrevus. Since the patient's last visit the patient reports overall feeling stable. Issues with current MS therapy: Tolerating medication without side effects. Patient denies any new or worsening neurologic symptoms. Has mild URI but cough, sinus congestion, sore throat lingered for ~5 weeks December/January. Was treated with ABX. No other infections. Denies weakness or falls. Recently start MVI w/iron and calcium with D per recommendation from PCP SUBJECTIVE & REVIEW OF SYSTEMS REVIEW OF SYSTEMS Refer to patient-entered data. Mood: PHQ9 responses reviewed and appear below Bladder: normal Bowel: Normal Pain related to today's visit: Denies pain Sleep: adequate Memory/Concentration: Normal Neuro-Qol Functions (higher = better functioning) 04/01/2024 11/27/2023 -- Upper Extremity Domain T Score 57 57 04/01/2024 11/27/2023 -- Lower Extremity Domain T Score 62 62 04/01/2024 11/27/2023 -- Cognitive Function Domain T Score 67 67 07/22/2019 04/19/2019 -- Positive Affect Well Being T Score 71.69 71.69 04/01/2024 11/27/2023 -- Ability To Participate In Social Roles T Score 63 63 04/01/2024 11/27/2023 -- Satisfaction With Social Roles T Score 62 62 Neuro-Qol Symptoms (higher = worse symptoms) 04/01/2024 11/27/2023 -- Sleep Domain T Score 36 32 04/01/2024 11/27/2023 -- Fatigue Domain T Score 42 42 04/01/2024 11/27/2023 -- Anxiety Domain T Score 50 45 04/01/2024 11/27/2023 -- Depression Domain T Score 34 38 04/01/2024 11/27/2023 -- Stigma Domain T Score 37 37 07/22/2019 04/19/2019 -- Emotional Behavior Dyscontrol T Score 29.51 29.51 *NeuroQoL is a multi-domain patient-reported quality of life questionnaire PHQ-9 Flowsheet Row Appointment from 04/02/2024 in [facility] Office Visit from 11/28/2023 in [facility] PHQ-9 Score 0 0 *PHQ-9 is a questionnaire for depressive symptoms, with scores 0-4 indicating none, 5-9 mild, 10-14 moderate, 15-19 moderately severe, and 20-27 severe symptoms. PROMIS-10 Flowsheet Row Appointment from 04/02/2024 in [facility] Office Visit from 11/28/2023 in [facility] Global Physical Health T Score 67.7 57.7 Global Mental Health T Score 67.6 59 0-10 Standard Pain Scale 5 5 *PROMIS-10 is a patient-reported quality of life measure, typically reported as physical and mental domains. Here scores are expressed as percentiles, where the lowest possible score is one, the highest possible score is 99, and 50 is average. PAST HISTORY was reviewed and updated PAST MEDICAL HISTORY No date: Multiple sclerosis (HCC) PAST SURGICAL HISTORY No date: NONE MEDICATIONS and ALLERGIES were reviewed and updated. SOCIAL HISTORY was reviewed and updated: Social History Tobacco Use Smoking status: Former Packs/day: 0.25 Years: 4.00 Additional pack years: 0.00 Total pack years: 1.00 Types: Cigarettes Smokeless tobacco: Never Tobacco comments: Quit smoking in 2013 Living situation: Living at home without assistance Employment Status / Disability: Full-time EXAM General Appearance: well appearing, in no acute distress Mental status evaluation during the interview and examination showed normal level of consciousness, orientation, language, memory, praxis, and higher intellectual function Affect: Normal Facial movements: Intact bilaterally Speech: normal RESULTS Monitoring labs: CBC + Diff Component Value Date WBC 7.51 12/01/2023 HB 11.7 12/01/2023 HCT 36.9 12/01/2023 PLT 272 12/01/2023 ABSLYMPH 2.47 12/01/2023 No results found for: VITD25 CMP Component Value Date AST 12 (L) 12/01/2023 GLUC 81 12/01/2023 BUN 17 12/01/2023 CREAT 0.74 12/01/2023 NA 144 12/01/2023 K 3.9 12/01/2023 CHLOR 108 (H) 12/01/2023 ALT 11 12/01/2023 No results found for: JCVIND , JCVAB IgG Date Value Ref Range Status 12/01/2023 1,074 700 - 1,600 mg/dL Final IgM Date Value Ref Range Status 12/01/2023 106 40 - 230 mg/dL Final CD19+ B Cell # Date Value Ref Range Status 06/13/2021 71 (L) 75 - 660 Cells/uL Final Comment: This test was developed and its performance characteristics determined by [facility]'s Zechariah Cady [facility] [place] ( [facility]). It has not been cleared or approved by the FDA. [facility] is regulated under CLIA as qualified to perform high complexity testing. This test is used for clinical purposes. It should not be regarded as investigational or for research. Discrete MRI Results Component Value Date Brain New T2 Lesions None Site 10/08/2023 Brain Enhancing Lesions None 10/08/2023 ASSESSMENT Lois Laguna is a 33 year old woman with Multiple Sclerosis. Limited exam per virtual visit is stable, subjectively patient Stable, continue with current IMDT. The prescribed disease modifying therapy for MS is having the expected benefit in this patient based on imaging and clinical criteria, and will be continued or refilled, with planned follow-up at approximately 6-month intervals to continue to assess response on an ongoing basis. Resumed Ocrevus 12/2023, tolerated without issue. One upper respiratory/sinus infection that did seem to linger longer than usual, treated with antibiotics. Will continue to follow immunoglobulin levels with each infusion. Updated imaging warranted 10/2024. MRI of the brain and/or spinal cord is being ordered to evaluate for efficacy of multiple sclerosis (MS) disease modifying therapy. Disease activity in MS is often not immediately detectable on history or examination, but is sensitively identified on MRI. If identified, new or active MS lesions on MRI may represent suboptimal response to MS therapy, and would change medical management. PLAN - Continue Ocrevus - Labwork: CD19, IgG, IgM with next infusion - MRI brain w/wo Gd 10/2024 Patient Health Education Discussed at Visit: Risks and Common side effects of MS medications Follow-up: In 6 months at [place] with [facility] I spent a total of 20 minutes on the date of the service which included preparing to see the patient, [id number] patient care, completing clinical documentation, obtaining and/or reviewing separately obtained history, performing a medically appropriate examination, counseling and educating the patient/family/caregiver, and ordering medications, tests, or procedures. Soheila MATUTE APRN.GAS FITTER HELPER documented in this encounter [facility] 04-02-2024 Note HNO ID: [id number] Author: SOHEILA MATUTE APRN.CNP Service: ? Author Type: Nurse Practitioner Type: Progress Notes Filed: 04/02/2024 10:29 Note Text: [facility] MULTIPLE SCLEROSIS FOLLOWUP/ESTABLISHED PATIENT VISIT VIRTUAL VISIT PRINCIPAL NEUROLOGIC DIAGNOSIS: Multiple Sclerosis HISTORY OF ILLNESS Onset: 11/2013 Diagnosis of MS: 07/2015 (active MRI) Disease course at onset: relapsing-remitting Current disease course: relapsing-remitting Previous disease therapies: - Tecfidera 10/2015 - 05/2018. Stopped in order to become - Elected to start Gilenya 07/2015 but denied - Tecfidera 09/01/2019 - 12/10/2020 (restarted 09/01/2019 after . Stopped due to new lesions on MRI) - Ocrevus start 12/11/2020 AND 12/25/2020. Last q6 month tx 06/13/2021 (cycle 2, held for family planning) Current disease therapy: Resumed Ocrevus 12/04/2023 AND 01/07/2024 Most recent MRI brain: 10/08/2023 Most recent MRI cervical spine: not done Most recent MRI thoracic spine: not done CSF: 03/23/2014 (+) OCBs 3 JCV serology: 07/18/2015 0.11 (-) VZV Ig07/18/2015 (+) CHIEF COMPLAINT: Follow-up on MS disease modifying therapy INTERVAL HISTORY Usual treating team: Francis/Giovani The patient's appointment was conducted by virtual visit via [email or web address] with patient consent, unaccompanied. I have communicated my name and active licensure. The patient's identity and physical location were verified at the time of this visit. Either the patient or their legal market survey representative has been informed of the risks and benefits of -- and alternatives to -- treatment through a remote evaluation and consents to proceed with the evaluation remotely. The patient was last seen 11/28/2023, currently taking Ocrevus. Since the patient's last visit the patient reports overall feeling stable. Issues with current MS therapy: Tolerating medication without side effects. Patient denies any new or worsening neurologic symptoms. Has mild URI but cough, sinus congestion, sore throat lingered for ~5 weeks December/January. Was treated with ABX. No other infections. Denies weakness or falls. Recently start MVI w/iron and calcium with D per recommendation from PCP SUBJECTIVE AND REVIEW OF SYSTEMS REVIEW OF SYSTEMS Refer to patient-entered data. Mood: PHQ9 responses reviewed and appear below Bladder: normal Bowel: Normal Pain related to today's visit: Denies pain Sleep: adequate Memory/Concentration: Normal Neuro-Qol Functions (higher = better functioning) 04/01/2024 11/27/2023 -- Upper Extremity Domain T Score 57 57 04/01/2024 11/27/2023 -- Lower Extremity Domain T Score 62 62 04/01/2024 11/27/2023 -- Cognitive Function Domain T Score 67 67 07/22/2019 04/19/2019 -- Positive Affect Well Being T Score 71.69 71.69 04/01/2024 11/27/2023 -- Ability To Participate In Social Roles T Score 63 63 04/01/2024 11/27/2023 -- Satisfaction With Social Roles T Score 62 62 Neuro-Qol Symptoms (higher = worse symptoms) 04/01/2024 11/27/2023 -- Sleep Domain T Score 36 32 04/01/2024 11/27/2023 -- Fatigue Domain T Score 42 42 04/01/2024 11/27/2023 -- Anxiety Domain T Score 50 45 04/01/2024 11/27/2023 -- Depression Domain T Score 34 38 04/01/2024 11/27/2023 -- Stigma Domain T Score 37 37 07/22/2019 04/19/2019 -- Emotional Behavior Dyscontrol T Score 29.51 29.51 *NeuroQoL is a multi-domain patient-reported quality of life questionnaire PHQ-9 Flowsheet Row Appointment from 04/02/2024 in [facility] Office Visit from 11/28/2023 in [facility] PHQ-9 Score 0 0 *PHQ-9 is a questionnaire for depressive symptoms, with scores 0-4 indicating none, 5-9 mild, 10-14 moderate, 15-19 moderately severe, and 20-27 severe symptoms. PROMIS-10 Flowsheet Row Appointment from 04/02/2024 in [facility] Office Visit from 11/28/2023 in [facility] Global Physical Health T Score 67.7 57.7 Global Mental Health T Score 67.6 59 0-10 Standard Pain Scale 5 5 *PROMIS-10 is a patient-reported quality of life measure, typically reported as physical and mental domains. Here scores are expressed as percentiles, where the lowest possible score is one, the highest possible score is 99, and 50 is average. PAST HISTORY was reviewed and updated PAST MEDICAL HISTORY No date: Multiple sclerosis (HCC) PAST SURGICAL HISTORY No date: NONE MEDICATIONS and ALLERGIES were reviewed and updated. SOCIAL HISTORY was reviewed and updated: Social History Tobacco Use Smoking status: Former Packs/day: 0.25 Years: 4.00 Additional pack years: 0.00 Total pack years: 1.00 Types: Cigarettes Smokeless tobacco: Never Tobacco comments: Quit smoking in 2013 Living situation: Living at home without assistance Employment Status / Disability: Full-time EXAM General Appearance: well appearing, in no acute distress Mental status evaluation during the interview and examination showed normal level of consciousness, orientation, language, m (more content not included)... [facility] 11-28-2023 Note HNO ID: [id number] Author: SOHEILA MATUTE APRN.CNP Service: ? Author Type: Nurse Practitioner Type: Progress Notes Filed: 12/18/2023 17:35 Note Text: OCREVUS STARTUP CHECKLIST resuming tx post- CBC (date: 12/01/2023) Normal CMP (date: 12/01/2023) Normal Hepatitis remote panel (date: 12/01/2023) Abnormal but acceptable. Pos Hep B sAb, not new Quantiferon (date: 12/01/2023) Normal IgG, IgM (date: 12/01/2023) Normal VZV (date: 07/18/2015) positive titer Covid Immunization Dates Overdue - Covid-19 Vaccine ( season) Overdue since 05/02/2023 10/05/2020 Imm Admin: COVID-19 original vaccine, full dose, monovalent (MODERNA) 09/07/2020 Imm Admin: COVID-19 original vaccine, full dose, monovalent (MODERNA) counseling if appropriate Yes (date: 11/28/2023) MRI Yes (date: 10/08/2023) Consent signed Yes (date: 12/06/2020) Approved by clinical team Yes (date: 12/03/2023) - Soheila MATUTE APRN.GAS FITTER HELPER [place] orders placed Yes (date: 12/02/2023) Insurance approval Yes (date: 12/18/2023) [place] orders signed Yes (date: 12/18/2023) Soheila MATUTE APRN.CNP [facility] 11-28-2023 History of Present illness Narrative OCREVUS STARTUP CHECKLIST resuming tx post- CBC (date: 12/01/2023) Normal CMP (date: 12/01/2023) Normal Hepatitis remote panel (date: 12/01/2023) Abnormal but acceptable. Pos Hep B sAb, not new Quantiferon (date: 12/01/2023) Normal IgG, IgM (date: 12/01/2023) Normal VZV (date: 07/18/2015) positive titer Covid Immunization Dates Overdue - Covid-19 Vaccine ( season) Overdue since 05/02/2023 10/05/2020 Imm Admin: COVID-19 original vaccine, full dose, monovalent (MODERNA) 09/07/2020 Imm Admin: COVID-19 original vaccine, full dose, monovalent (MODERNA) counseling if appropriate Yes (date: 11/28/2023) MRI Yes (date: 10/08/2023) Consent signed Yes (date: 12/06/2020) Approved by clinical team Yes (date: 12/03/2023) - Soheila MATUTE APRN.GAS FITTER HELPER [place] orders placed Yes (date: 12/02/2023) Insurance approval Yes (date: 12/18/2023) [place] orders signed Yes (date: 12/18/2023) Soheila MATUTE APRN.GAS FITTER HELPER documented in this encounter [facility] 11-28-2023 Note HNO ID: [id number] Author: SOHEILA MATUTE APRN.CNP Service: ? Author Type: Nurse Practitioner Type: Progress Notes Filed: 11/28/2023 09:44 Note Text: [facility] MULTIPLE SCLEROSIS FOLLOWUP/ESTABLISHED PATIENT VISIT Principal Neurologic Diagnosis: Multiple Sclerosis HISTORY OF ILLNESS Onset: 11/2013 Diagnosis of MS: 07/2015 (active MRI) Disease course at onset: relapsing-remitting Current disease course: relapsing-remitting Previous disease therapies: - Tecfidera 10/2015 - 05/2018. Stopped in order to become - Elected to start Gilenya 07/2015 but denied - Tecfidera 09/01/2019 - 12/10/2020 (restarted 09/01/2019 after . Stopped due to new lesions on MRI) - Ocrevus start 12/11/2020 AND 12/25/2020. Last q6 month tx 06/13/2021 (cycle 2, held for family planning) Current disease therapy: None Most recent MRI brain: 10/08/2023 Most recent MRI cervical spine: not done Most recent MRI thoracic spine: not done CSF: 03/23/2014 (+) OCBs 3 JCV serology: 07/18/2015 0.11 (-) VZV Ig07/18/2015 (+) CHIEF COMPLAINT: Follow-up for monitoring off MS modifying therapy INTERVAL HISTORY Usual treating team: Francis/Giovani The patient is unaccompanied. The patient was last seen 08/15/2022, Not on DMT. Since the patient's last visit the patient reports overall feeling stable. Patient denies any new or worsening neurologic symptoms. Recently stopped , ready to resume DMT. Has had a lot of difficulties with her son's allergies negatively impacting sleep but this has improved now that they know what his allergies are and he is sleeping better. Longstanding intermittent left facial numbness particularly when tired. No recent occurrence. SUBJECTIVE AND REVIEW OF SYSTEMS REVIEW OF SYSTEMS Refer to patient-entered data. Mood: PHQ9 responses reviewed and appear below Spasticity: None Bladder: Normal Bowel: Normal Pain related to today's visit:reviewed on nursing intake documentation Fatigue: Mild, See HPI Sleep: No problem/well Memory/Concentration: Normal Neuro-Qol Functions (higher = better functioning) 11/27/2023 08/15/2022 -- Upper Extremity Domain T Score 57 57 11/27/2023 08/15/2022 -- Lower Extremity Domain T Score 62 62 11/27/2023 08/15/2022 -- Cognitive Function Domain T Score 67 67 07/22/2019 04/19/2019 -- Positive Affect Well Being T Score 71.69 71.69 11/27/2023 08/15/2022 -- Ability To Participate In Social Roles T Score 63 63 11/27/2023 08/15/2022 -- Satisfaction With Social Roles T Score 62 62 Neuro-Qol Symptoms (higher = worse symptoms) 11/27/2023 08/15/2022 -- Sleep Domain T Score 32 32 11/27/2023 08/15/2022 -- Fatigue Domain T Score 42 42 11/27/2023 08/15/2022 -- Anxiety Domain T Score 45 52 11/27/2023 08/15/2022 -- Depression Domain T Score 38 46 11/27/2023 08/15/2022 -- Stigma Domain T Score 37 37 07/22/2019 04/19/2019 -- Emotional Behavior Dyscontrol T Score 29.51 29.51 *NeuroQoL is a multi-domain patient-reported quality of life questionnaire PHQ-9 Flowsheet [facility] Office Visit from 11/28/2023 in [facility] Office Visit from 08/15/2022 in [facility] PHQ-9 Score 0 0 *PHQ-9 is a questionnaire for depressive symptoms, with scores 0-4 indicating none, 5-9 mild, 10-14 moderate, 15-19 moderately severe, and 20-27 severe symptoms. PROMIS-10 Flowsheet [facility] Office Visit from 11/28/2023 in [facility] Office Visit from 08/15/2022 in [facility] Global Physical Health T Score 57.7 57.7 Global Mental Health T Score 59 50.8 0-10 Standard Pain Scale 5 5 *PROMIS-10 is a patient-reported quality of life measure, typically reported as physical and mental domains. Here scores are expressed as percentiles, where the lowest possible score is one, the highest possible score is 99, and 50 is average. PAST HISTORY was reviewed and updated PAST MEDICAL HISTORY Diagnosis Date Multiple sclerosis (HCC) PAST SURGICAL HISTORY Procedure Laterality Date NONE MEDICATIONS and ALLERGIES were reviewed and updated. SOCIAL HISTORY was reviewed and updated: Social History Tobacco Use Smoking status: Former Packs/day: 0.25 Years: 4.00 Additional pack years: 0.00 Total pack years: 1.00 Types: Cigarettes Smokeless tobacco: Never Tobacco comments: Quit smoking in 2013 Living situation: Living at home without assistance Employment Status / Disability: Full-time [employer] BP 114/66 Pulse 102 Ht 160 cm (5' 3 ) Wt 78.8 kg (173 lb 11.2 oz) LMP 11/15/2023 BMI 30.77 kg/m? Multiple Sclerosis Performance Test Flowsheet [facility] Office Visit from 11/28/2023 in [facility] Office Visit from 04/08/2022 in [facility] Processing Speed Total Number Correct 74 76 Low-contrast letter acuity test-2.5 percent opacity 37 50 Low-contrast letter acuity test-100 percent opacity 60 60 Dominant hand -- -- MDT Left Hand Time 19.42 20.95 MDT Right Hand Time 18.96 20.26 Walking (more content not included)... [facility] 10-08-2023 History of Present illness Narrative Radiology Service Progress Note DATE OF SERVICE: October 08, 2023 TIME: 3:21 PM PATIENT IDENTITY VERIFICATION COMPLETED USING TWO (2) STANDARD IDENTIFIERS: Name and Date of confirmed by patient verbally and Name and Date of confirmed by identification band. FALL SCREENING: Has the patient had 2 falls in the last year or 1 fall with injury or currently using an Ambulatory Assistive Device (Walker, Cane, Wheelchair, Crutches, etc.)? No PATIENT GENDER DATA: Female. status: : No status: NO. PATIENT RELEVANT IMPLANT DATA REVIEWED: Yes PATIENT PRESENTS WITH AN IMPLANTABLE OR ATTACHED TELEPHONE STATION INSTALLER: No ALLERGIES: Reviewed and unchanged CONTRAST ALLERGY: NO. EXAM: MRI - CONTRAST TYPE: GROUP II PERIPHERAL IV DATA: Ambulatory: A peripheral IV was started in the Left antecubital site with a Butterfly: 23 gauge. RADIOLOGY DEPARTMENT: MR; Exam(s) Completed: Head: Multiple Sclerosis SIGNATURE: ZOHRA Perez) PATIENT NAME: Lois Laguna DATE: October 08, 2023 TIME: 3:21 PM documented in this encounter [facility] 10-08-2023 Note HNO ID: [id number] Author: JERMAIN KEEN RT(R) Service: Radiology Author Type: Technologist Type: Progress Notes Filed: 10/08/2023 15:21 Note Text: Radiology Service Progress Note DATE OF SERVICE: October 08, 2023 TIME: 3:21 PM PATIENT IDENTITY VERIFICATION COMPLETED USING TWO (2) STANDARD IDENTIFIERS: Name and Date of confirmed by patient verbally and Name and Date of confirmed by identification band. FALL SCREENING: Has the patient had 2 falls in the last year or 1 fall with injury or currently using an Ambulatory Assistive Device (Walker, Cane, Wheelchair, Crutches, etc.)? No PATIENT GENDER DATA: Female. status: : No status: NO. PATIENT RELEVANT IMPLANT DATA REVIEWED: Yes PATIENT PRESENTS WITH AN IMPLANTABLE OR ATTACHED TELEPHONE STATION INSTALLER: No ALLERGIES: Reviewed and unchanged CONTRAST ALLERGY: NO. EXAM: MRI - CONTRAST TYPE: GROUP II PERIPHERAL IV DATA: Ambulatory: A peripheral IV was started in the Left antecubital site with a Butterfly: 23 gauge. RADIOLOGY DEPARTMENT: MR; Exam(s) Completed: Head: Multiple Sclerosis SIGNATURE: RT Chris(R) PATIENT NAME: Lois Laguna DATE: October 08, 2023 TIME: 3:21 PM [facility] 08-15-2022 Instructions Soheila Matute APRN.GAS FITTER HELPER - 08/15/2022 3:40 PM EST PLAN - Continue to monitor off multiple sclerosis disease modifying therapy - MRI brain w/wo Gd 2-3 months documented in this encounter [facility] 08-15-2022 History of Present illness Narrative Images from the original note were not included. [facility] MULTIPLE SCLEROSIS FOLLOWUP/ESTABLISHED PATIENT VISIT Principal Neurologic Diagnosis: Multiple Sclerosis HISTORY OF ILLNESS Onset: 11/2013 Diagnosis of MS: 07/2015 (active MRI) Disease course at onset: relapsing-remitting Current disease course: relapsing-remitting Previous disease therapies: - Tecfidera 10/2015 - 05/2018. Stopped in order to become - Elected to start Gilenya 07/2015 but denied - Tecfidera 09/01/2019 - 12/10/2020 (restarted 09/01/2019 after . Stopped due to new lesions on MRI) - Ocrevus start 12/11/2020 & 12/25/2020. Last q6 month TX 06/13/2021 (cycle 2) Current disease therapy: On hold for Most recent MRI brain: 06/13/2021 and 08/14/2022 Most recent MRI cervical spine: not done Most recent MRI thoracic spine: not done CSF: 03/23/2014 (+) OCBs 3 JCV serology: 07/18/2015 0.11 (-) VZV Ig07/18/2015 (+) CHIEF COMPLAINT: Follow-up for monitoring off MS modifying therapy INTERVAL HISTORY Usual treating team: Francis/Giovani The patient is unaccompanied. The patient was last seen 04/08/2022, currently Not on DMT. Since the patient's last visit the patient reports overall feeling stable. Patient denies any new or worsening neurologic symptoms. No illness or infections. Induced 06/17/2022 but not due to complications. Had true knot in umbilical cord so fortunate delivery was earlier. Vaginal delivery, no issues. without issue. Would like to continue at least 6 months. SUBJECTIVE & REVIEW OF SYSTEMS REVIEW OF SYSTEMS Refer to patient-entered data. Mood: PHQ9 responses reviewed and appear below, Good/bright Spasticity:None Bladder: Normal Bowel: Normal Pain related to today's visit:reviewed on nursing intake documentation Fatigue: None Sleep: No problem/well Memory/Concentration: Normal Neuro-Qol Functions (higher = better functioning) 08/15/2022 04/07/2022 Upper Extremity Domain T Score 57 57 08/15/2022 04/07/2022 Lower Extremity Domain T Score 62 62 08/15/2022 04/07/2022 Cognitive Function Domain T Score 67 67 07/22/2019 04/19/2019 Positive Affect Well Being T Score 71.69 71.69 08/15/2022 04/06/2022 Ability To Participate In Social Roles T Score 63 56 08/15/2022 04/07/2022 Satisfaction With Social Roles T Score 62 48 Neuro-Qol Symptoms (higher = worse symptoms) 08/15/2022 04/07/2022 Sleep Domain T Score 32 39 08/15/2022 04/07/2022 Fatigue Domain T Score 42 49 08/15/2022 04/07/2022 Anxiety Domain T Score 52 49 08/15/2022 04/07/2022 Depression Domain T Score 46 47 08/15/2022 04/07/2022 Stigma Domain T Score 37 37 07/22/2019 04/19/2019 Emotional Behavior Dyscontrol T Score 29.51 29.51 *NeuroQoL is a multi-domain patient-reported quality of life questionnaire PHQ-9 Flowsheet Row Office Visit from 08/15/2022 in [facility] Office Visit from 04/08/2022 in [facility] PHQ-9 Score 0 0 *PHQ-9 is a questionnaire for depressive symptoms, with scores 0-4 indicating none, 5-9 mild, 10-14 moderate, 15-19 moderately severe, and 20-27 severe symptoms. PROMIS-10 Flowsheet Row Office Visit from 08/15/2022 in [facility] Office Visit from 04/08/2022 in [facility] Global Physical Health T Score 57.7 54.1 Global Mental Health T Score 50.8 56 0-10 Standard Pain Scale 5 5 *PROMIS-10 is a patient-reported quality of life measure, typically reported as physical and mental domains. Here scores are expressed as percentiles, where the lowest possible score is one, the highest possible score is 99, and 50 is average. PAST HISTORY was reviewed and updated PAST MEDICAL HISTORY Diagnosis Date Multiple sclerosis (HCC) PAST SURGICAL HISTORY Procedure Laterality Date NONE MEDICATIONS and ALLERGIES were reviewed and updated. SOCIAL HISTORY was reviewed and updated: Social History Tobacco Use Smoking status: Former Packs/day: 0.25 Years: 4.00 Pack years: 1 Types: Cigarettes Smokeless tobacco: Never Tobacco comments: Quit smoking in 2013 Living situation: Living at home without assistance Employment Status / Disability: Full-time [employer] BP 118/73 (BP Site: Left Arm, BP Position: Sitting, BP Cuff Size: Large Adult) Pulse 87 Ht 160 cm (5' 3 ) Wt 77.1 kg (170 lb) Unknown BMI 30.11 kg/m Multiple Sclerosis Performance Test Flowsheet [facility] Office Visit from 04/08/2022 in [facility] Office Visit from 06/16/2021 in [facility] Processing Speed Total Number Correct 76 73 Low-contrast letter acuity test-2.5 percent opacity 50 49 Low-contrast letter acuity test-100 percent opacity 60 60 Dominant hand -- -- MDT Left Hand Time 20.95 19.35 MDT Right Hand Time 20.26 18.85 Walking Speed Test (25 feet) 4.17 3.86 EXAM General Appearance: Well appearing, alert, in no acute distress, well-hydrated, well nourished. Mental status evaluation during the interview and examination showed normal level of consciousness, orientation, language, memory, praxis, and higher intellectual function Affect: Normal Visual acuity: OD 20/20 OS 20/20 Correction: Without Extraocular movements: full, without SAIGE Facial movements: Intact bilaterally Speech: normal Shoulder shrug: Muscle tone: Right arm spasticity: None Right leg spasticity: None Left arm spasticity: None Left leg spasticity: None Muscle strength (#/5): Right Left Upper Extremity: Deltoids 5 5 Biceps 5 5 Triceps 5 5 Demolition Worker 5 5 Dorsal interossei 5 5 Lower extremity: Iliopsoas 5 5 Quadriceps 5 5 Hamstrings 5 5 Tibialis anterior 5 5 Gastrocnemius 5 5 Coordination: Upper extremity dexterity and rapid movements: Normal bilaterally Finger-nose: no dysmetria; coordination intact Heel-reed: no dysmetria; coordination intact Standing balance: Normal Standard gait: normal. Assistive device: independent Tandem walking: Normal Toe walking: Normal Heel walking: Normal Balancing on 1 foot, right: Normal Balancing on 1 foot, left: Normal RESULTS Monitoring labs: CBC + Diff Component Value Date WBC 7.47 10/20/2020 HB 13.4 10/20/2020 HCT 41.4 10/20/2020 PLT 255 10/20/2020 ABSLYMPH 2.62 10/20/2020 No results found for: VITD25 CMP Component Value Date AST 12 (L) 10/20/2020 GLUC 76 01/08/2022 BUN 14 11/15/2020 CREAT 0.69 11/15/2020 NA 138 11/15/2020 K 4.4 11/15/2020 CHLOR 103 11/15/2020 ALT 10 10/20/2020 No results found for: JCVIND, JCVAB IgG Date Value Ref Range Status 11/15/2020 1,013 700 - 1,600 mg/dL Final IgM Date Value Ref Range Status 11/15/2020 162 40 - 230 mg/dL Final CD19+ B Cell # Date Value Ref Range Status 06/13/2021 71 (L) 75 - 660 Cells/uL Final Comment: This test was developed and its performance characteristics determined by [facility] Zechariah Cady [facility] [place] ( [facility]). It has not been cleared or approved by the FDA. [facility] is regulated under CLIA as qualified to perform high complexity testing. This test is used for clinical purposes. It should not be regarded as investigational or for research. Discrete MRI Results Component Value Date Brain New T2 Lesions None Site 08/15/2022 Brain Enhancing Lesions None 08/15/2022 ASSESSMENT Lois Laguna is a 32 year old woman with Multiple Sclerosis. Exam is stable, subjectively patient is stable, and imaging completed today indicates MS is radiographically stable. Patient approximately 6 weeks , healthy delivery of her second child. No complications with , delivery, or period. She is breast-feeding, would like to continue this at least through 6 months before resuming DMT. Given stability of all relevant factors, continue to monitor off DMT, repeat imaging 2 to 3 months. Reviewed she should repeat MRI closer to 2 months if she introduces formula. Breast-feeding is protective for MS with exclusive breast-feeding. Patient will be vigilant about new or worsening symptoms and contact [facility] should this occur. PLAN - Continue to monitor off DMT - MRI brain w/wo Gd 2-3 months Patient Health Education Discussed at Visit: Emotional Health/Wellness Follow-up: In 3 months at [place] with [facility] I spent a total of 40 minutes on the date of the service which included preparing to see the patient, [id number] patient care, completing clinical documentation, obtaining and/or reviewing separately obtained history, performing a medically appropriate examination, counseling and educating the patient/family/caregiver, ordering medications, tests, or procedures, and communicating results to the patient/family/caregiver. Soheila MATUTE APRN.GAS FITTER HELPER documented in this encounter [facility] 08-15-2022 History of Present illness Narrative Radiology Service Progress Note DATE OF SERVICE: August 15, 2022 TIME: 1:45 PM PATIENT IDENTITY VERIFICATION COMPLETED USING TWO (2) STANDARD IDENTIFIERS: Name and Date of confirmed by patient verbally and Name and Date of confirmed by identification band. FALL SCREENING: Has the patient had 2 falls in the last year or 1 fall with injury or currently using an Ambulatory Assistive Device (Walker, Cane, Wheelchair, Crutches, etc.)? No PATIENT GENDER DATA: Female. status: : No status: NO. PATIENT RELEVANT IMPLANT DATA REVIEWED: Yes ALLERGIES: Reviewed and unchanged CONTRAST ALLERGY: NO. EXAM: MRI - CONTRAST TYPE: GROUP II PERIPHERAL IV DATA: Ambulatory: A peripheral IV was started in the Right antecubital site with a Butterfly: 23 gauge. RADIOLOGY DEPARTMENT: MR; Exam(s) Completed: Head: Multiple Sclerosis SIGNATURE: RT Chris(R) PATIENT NAME: Lois Laguna DATE: August 15, 2022 TIME: 1:45 PM documented in this encounter [facility] 04-08-2022 Instructions Soheila Matute APRN.GAS FITTER HELPER - 04/08/2022 11:14 AM EDT PLAN - Continue to hold Ocrevus during - MRI brain w/wo Gd 8 weeks . Do not breastfeed x 24 hours post-Gadolinium. documented in this encounter [facility] 04-08-2022 History of Present illness Narrative Images from the original note were not included. [facility] MULTIPLE SCLEROSIS FOLLOWUP/ESTABLISHED PATIENT VISIT Principal Neurologic Diagnosis: Multiple Sclerosis HISTORY OF ILLNESS Onset: 11/2013 Diagnosis of MS: 07/2015 (active MRI) Disease course at onset: relapsing-remitting Current disease course: relapsing-remitting Previous disease therapies: - Tecfidera 10/2015 - 05/2018. Stopped in order to become - Elected to start Gilenya 07/2015 but denied - Tecfidera 09/01/2019 - 12/10/2020 (restarted 09/01/2019 after . Stopped due to new lesions on MRI) - Ocrevus start 12/11/2020 & 12/25/2020. Last q6 month TX 06/13/2021 (cycle 2) Current disease therapy: On hold for Most recent MRI brain: 06/13/2021 Most recent MRI cervical spine: not done Most recent MRI thoracic spine: not done CSF: 03/23/2014 (+) OCBs 3 JCV serology: 07/18/2015 0.11 (-) VZV Ig07/18/2015 (+) CHIEF COMPLAINT: Follow-up for monitoring off MS modifying therapy INTERVAL HISTORY Usual treating team: Cristina The patient is unaccompanied. The patient was last seen 06/16/2021, currently Not on DMT. Since the patient's last visit the patient reports overall feeling stable. , due 06/21/2022. Healthy , no complications. Plan is for vaginal , no complications with previous /delivery. Patient denies any new or worsening neurologic symptoms. SUBJECTIVE & REVIEW OF SYSTEMS REVIEW OF SYSTEMS Refer to patient-entered data. Mood: PHQ9 responses reviewed and appear below, Good/bright Spasticity: None Bladder: Normal Bowel: Normal Pain related to today's visit:reviewed on nursing intake documentation Fatigue: Worse Sleep: No problem/well Memory/Concentration: Normal Neuro-Qol Functions (higher = better functioning) 04/07/2022 06/15/2021 Upper Extremity Domain T Score 57 57 04/07/2022 06/15/2021 Lower Extremity Domain T Score 62 62 04/07/2022 06/15/2021 Cognitive Function Domain T Score 67 67 07/22/2019 04/19/2019 Positive Affect Well Being T Score 71.69 71.69 04/06/2022 06/15/2021 Ability To Participate In Social Roles T Score 56 63 04/07/2022 06/15/2021 Satisfaction With Social Roles T Score 48 62 Neuro-Qol Symptoms (higher = worse symptoms) 04/07/2022 06/15/2021 Sleep Domain T Score 39 39 04/07/2022 06/15/2021 Fatigue Domain T Score 49 42 04/07/2022 06/15/2021 Anxiety Domain T Score 49 50 04/07/2022 06/15/2021 Depression Domain T Score 47 41 04/07/2022 06/15/2021 Stigma Domain T Score 37 37 07/22/2019 04/19/2019 Emotional Behavior Dyscontrol T Score 29.51 29.51 *NeuroQoL is a multi-domain patient-reported quality of life questionnaire PHQ-9 Flowsheet Row Office Visit from 04/08/2022 in [facility] Office Visit from 06/16/2021 in [facility] PHQ-9 Score 0 1 *PHQ-9 is a questionnaire for depressive symptoms, with scores 0-4 indicating none, 5-9 mild, 10-14 moderate, 15-19 moderately severe, and 20-27 severe symptoms. PROMIS-10 Flowsheet Row Office Visit from 04/08/2022 in [facility] Office Visit from 06/16/2021 in [facility] Global Physical Health T Score 54.1 61.9 Global Mental Health T Score 56 59 0-10 Standard Pain Scale 5 5 *PROMIS-10 is a patient-reported quality of life measure, typically reported as physical and mental domains. Here scores are expressed as percentiles, where the lowest possible score is one, the highest possible score is 99, and 50 is average. PAST HISTORY was reviewed and updated PAST MEDICAL HISTORY Diagnosis Date Multiple sclerosis (HCC) PAST SURGICAL HISTORY Procedure Laterality Date NONE MEDICATIONS and ALLERGIES were reviewed and updated. SOCIAL HISTORY was reviewed and updated: Social History Tobacco Use Smoking status: Former Packs/day: 0.25 Years: 4.00 Pack years: 1 Types: Cigarettes Smokeless tobacco: Never Tobacco comments: Quit smoking in 2013 Living situation: Living at home without assistance Employment Status / Disability: Full-time [employer] BP 104/63 Pulse 93 Ht 160 cm (5' 3 ) Wt 87.1 kg (192 lb) BMI 34.01 kg/m Multiple Sclerosis Performance Test Flowsheet Row Office Visit from 04/08/2022 in [facility] Office Visit from 06/16/2021 in [facility] Processing Speed Total Number Correct 76 73 Low-contrast letter acuity test-2.5 percent opacity 50 49 Low-contrast letter acuity test-100 percent opacity 60 60 Dominant hand -- -- MDT Left Hand Time 20.95 19.35 MDT Right Hand Time 20.26 18.85 Walking Speed Test (25 feet) 4.17 3.86 EXAM General Appearance: Well appearing, alert, in no acute distress, well-hydrated, well nourished. Mental status evaluation during the interview and examination showed normal level of consciousness, orientation, language, memory, praxis, and higher intellectual function Affect: Normal Visual acuity: OD 20/20 OS 20/20 Correction: Without Extraocular movements: full, without SAIGE Facial movements: Intact bilaterally Speech: normal Shoulder shru/5 b/l Muscle tone: Right arm spasticity: None Right leg spasticity: None Left arm spasticity: None Left leg spasticity: None Muscle strength (#/5): Right Left Upper Extremity: Deltoids 5 5 Biceps 5 5 Triceps 5 5 Demolition Worker 5 5 Dorsal interossei 5 5 Lower extremity: Iliopsoas 5 5 Quadriceps 5 5 Hamstrings 5 5 Tibialis anterior 5 5 Gastrocnemius 5 5 Coordination: Upper extremity dexterity and rapid movements: Normal bilaterally Finger-nose: no dysmetria; coordination intact Heel-reed: no dysmetria; coordination intact Standing balance: Normal Standard gait: normal. Assistive device: independent Tandem walking: Normal Toe walking: Normal Heel walking: Normal Balancing on 1 foot, right: Normal Balancing on 1 foot, left: Normal RESULTS Monitoring labs: CBC + Diff Component Value Date WBC 7.47 10/20/2020 HB 13.4 10/20/2020 HCT 41.4 10/20/2020 PLT 255 10/20/2020 ABSLYMPH 2.62 10/20/2020 No results found for: VITD25 CMP Component Value Date AST 12 (L) 10/20/2020 GLUC 76 01/08/2022 BUN 14 11/15/2020 CREAT 0.69 11/15/2020 NA 138 11/15/2020 K 4.4 11/15/2020 CHLOR 103 11/15/2020 ALT 10 10/20/2020 No results found for: JCVIND, JCVAB IgG Date Value Ref Range Status 11/15/2020 1,013 700 - 1,600 mg/dL Final IgM Date Value Ref Range Status 11/15/2020 162 40 - 230 mg/dL Final CD19+ B Cell # Date Value Ref Range Status 06/13/2021 71 (L) 75 - 660 Cells/uL Final Comment: This test was developed and its performance characteristics determined by [facility] [place] ( [facility]). It has not been cleared or approved by the FDA. [facility] is regulated under CLIA as qualified to perform high complexity testing. This test is used for clinical purposes. It should not be regarded as investigational or for research. Discrete MRI Results Component Value Date Brain New T2 Lesions None Site 06/13/2021 Brain Enhancing Lesions None 06/13/2021 Covid Immunization Dates Overdue - COVID-19 VACCINE (3 - Booster for Moderna series) Overdue since 03/04/2021 10/05/2020 Imm Admin: COVID-19 vaccine, full dose (MODERNA) 09/07/2020 Imm Admin: COVID-19 vaccine, full dose (MODERNA) ASSESSMENT Lois Laguna is a 31 year old woman with Multiple Sclerosis. Exam is stable, subjectively patient is stable. Currently . This will be her 2nd child. First and delivery healthy, uncomplicated vaginal . Expected delivery date 06/21/2022. Plan is to breastfeed, ideal would be 6 months. She did have new lesion at 8-week MRI following first so DMT was resumed at that poin. We will repeat MRI at 8 weeks . If MRI quiet at 8 weeks, continue through 6 months then restart Ocrevus. We will perform MRI w/Gd and she will dispose of breast milk for 24 hours. PLAN - Continue to hold Ocrevus during - MRI brain w/wo Gd 8 weeks Patient Health Education Discussed at Visit: Risks and Common side effects of MS medications Follow-up: In 4 months at [facility] I spent a total of 45 minutes on the date of the service which included preparing to see the patient, [id number] patient care, completing clinical documentation, obtaining and/or reviewing separately obtained history, performing a medically appropriate examination, counseling and educating the patient/family/caregiver, and ordering medications, tests, or procedures. The patient was seen with Dr. Blanco. Soheila MATUTE APRN.GAS FITTER HELPER I saw and evaluated the patient. I reviewed the note and agree with the history, exam findings, assessment, and plan listed above. Last dose of Ocrevus was 06/2021. MS is stable clinically. She currently is . We will see her post- with MRI. If possible she would like to breat feed for 6 months. Ar Blanco MD documented in this encounter [facility] Evaluation note Diagnosis Multiple sclerosis (HCC)- [facility])- [facility]) [facility]) [facility] ([facility])- Primary [facility] ([facility])- Primary [facility] Diagnosis Onset Date Resolution Status Acute maxillary sinusitis, unspecified acute Sore throat noneactive [facility] Work Phone: Evaluation note* Diagnosis Multiple sclerosis (HCC)- Primary Multiple sclerosis Encounter for long-term (current) use of medications Encounter for long-term (current) use of other medications documented in this encounter [facility] Reason for Referral Specialty Diagnoses / Procedures Referred By Douglas gallegos Referred To Contact MR IMAGING Diagnoses Multiple sclerosis (HCC) Encounter for long-term (current) use of medications Procedures MRI BRAIN WO/W IVCON MRI BRAIN BRAIN STEM W/O W/CONTRAST MATERIAL Soheila Matute APRN.GAS FITTER HELPER [address] [place] [address] Mr Imaging Referral ID Status Reason Start Date Expiration Date Visits Requested Visits Authorized [id number] Pending Review Auto-Generat ed Referral 04/08/2022 05/08/2023 1 1 Specialty Diagnoses / Procedures Referred By Douglas gallegos Referred To Contact MR IMAGING Diagnoses Multiple sclerosis (HCC) Procedures MRI BRAIN WO/W IVCON MRI BRAIN BRAIN STEM W/O W/CONTRAST MATERIAL Soheila Matute APRN.GAS FITTER HELPER [address] [place] [address] Mr Imaging Referral ID Status Reason Start Date Expiration Date Visits Requested Visits Authorized [id number] Pending Review Auto-Generat ed Referral 09/14/2023 1 1 Referral ID Status Reason Start Date Expiration Date V isits Requested Visits Authorized [id number] Closed Auto-Generate d Referral 07/31/2022 09/14/2022 1 1 Specialty Diagnoses / Procedures Referred By Douglas gallegos Referred To Contact MR IMAGING Diagnoses Multiple sclerosis (HCC) Procedures MRI BRAIN WO/W IVCON MRI BRAIN BRAIN STEM W/O W/CONTRAST MATERIAL Soheila Matute APRN.GAS FITTER HELPER [address] [place] [address] Mr Imaging [place] [id number] Referral ID Status Reason Start Date Expiration Date V isits Requested Visits Authorized [id number] Closed Auto-Generate d Referral 09/04/2023 10/03/2024 1 1 Specialty Diagnoses / Procedures Referred By Douglas gallegos Referred To Contact MR IMAGING Diagnoses Multiple sclerosis (HCC) Encounter for long-term (current) use of medications Procedures MRI BRAIN WO/W IVCON MRI BRAIN BRAIN STEM W/O W/CONTRAST MATERIAL Soheila Matute, OPTIMIZATION MANAGER.GAS FITTER HELPER [address] [place] [address] [place] [id number] Referral ID Status Reason Start Date Expiration Date Visits Requested Visits Authorized [id number] New Request Auto-Generat ed Referral 04/02/2024 05/02/2025 1 1 Summary Purpose Family History No Family History Records FoundNo Family History Records FoundNo Family History Records FoundNo Family History Records FoundNo Family History Records Found Advance Directives No Advanced Directives Records Found Advance Directive Response Recorded Date/ Time Advance Directives No January 29 4:43pm Chief Complaint and Reason for Visit Chief Complaint Sore throat Reason for Visit Acute maxillary sinu sitis, unspecified Sore throat Additional Source Comments Source Comments (unrecognize d section and content) In the event this informatio n is protected by the Federal Confidentiality of Alcohol and Drug Abuse Patient Records regulations: The Federal rules restrict any use of the information to criminally investigate or prosecute any alcohol or drug abuse patient.[facility] the event this information is protected by the Federal Confidentiality of Alcohol and Drug Abuse Patient Records regulations: The Federal rules restrict any use of the information to criminally investigate or prosecute any alcohol or drug abuse patient.[facility] the event this information is protected by the Federal Confidentiality of Alcohol and Drug Abuse Patient Records regulations: The Federal rules restrict any use of the information to criminally investigate or prosecute any alcohol or drug abuse patient.[facility] the event this information is protected by the Federal Confidentiality of Alcohol and Drug Abuse Patient Records regulations: The Federal rules restrict any use of the information to criminally investigate or prosecute any alcohol or drug abuse patient.[facility] the event this information is protected by the Federal Confidentiality of Alcohol and Drug Abuse Patient Records regulations: The Federal rules restrict any use of the information to criminally investigate or prosecute any alcohol or drug abuse patient.[facility] the event this information is protected by the Federal Confidentiality of Alcohol and Drug Abuse Patient Records regulations: The Federal rules restrict any use of the information to criminally investigate or prosecute any alcohol or drug abuse patient.[facility] the event this information is protected by the Federal Confidentiality of Alcohol and Drug Abuse Patient Records regulations: The Federal rules restrict any use of the information to criminally investigate or prosecute any alcohol or drug abuse patient.[facility] Hospital[facility] the event this information is protected by the Federal Confidentiality of Alcohol and Drug Abuse Patient Records regulations: The Federal rules restrict any use of the information to criminally investigate or prosecute any alcohol or drug abuse patient.[facility] Hospital[facility] the event this information is protected by the Federal Confidentiality of Alcohol and Drug Abuse Patient Records regulations: The Federal rules restrict any use of the information to criminally investigate or prosecute any alcohol or drug abuse patient.[facility] Reason for Visit (unrecogniz ed section and content) Reason Comments Infusion Ocrevus Specialty Diagnoses / Procedures Referred By Douglas t Referred To Contact Diagnoses Multiple sclerosis (HCC) Procedures INJECTION, OCRELIZUMAB, 1 MG Soheila Matute, KARINA.GAS FITTER HELPER [address] [place] [address] [facility] [address] [place] [address] Referral ID Status Reason Start Date Expiration Date V isits Requested Visits Authorized [id number] Authorized 12/03/2023 12/01/2024 4 4 Reason Comments Established Patient Follow-Up Reason Comments Radiology MRI Specialty Diagnoses / Procedures Referred By Douglas t Referred To Contact MR IMAGING Diagnoses Multiple sclerosis (HCC) Encounter for long-term (current) use of medications Procedures MRI BRAIN WO/W IVCON MRI BRAIN BRAIN STEM W/O W/CONTRAST MATERIAL Soheila Matute APRN.GAS FITTER HELPER [address] [place] [address] Mr Imaging Referral ID Status Reason Start Date Expiration Date V isits Requested Visits Authorized [id number] Closed Auto-Generate d Referral 07/31/2022 09/14/2022 1 1 Specialty Diagnoses / Procedures Referred By Douglas t Referred To Contact MR IMAGING Diagnoses Multiple sclerosis (HCC) Procedures MRI BRAIN WO/W IVCON MRI BRAIN BRAIN STEM W/O W/CONTRAST MATERIAL Soheila Matute, OPTIMIZATION MANAGER.GAS FITTER HELPER [address] [place] [address] Mr Imaging [place] [id number] Referral ID Status Reason Start Date Expiration Date V isits Requested Visits Authorized [id number] Closed Auto-Generate d Referral 09/04/2023 10/03/2024 1 1 Reason Comments Ocrevus [place] Checklist Reason Comments IV Medication Administration Ocrevus Care Teams (unrecognized sec tion and content) Costume Director Relationship Specialty Start Date End Date de Mckayla Mancera PCP - General Family Practice 04/14/14 Costume Director Relationship Specialty Start Date End Date de Mckayla Mancera PCP - General Family Medicine 04/14/14 Costume Director Relationship Specialty Start Date End Date de Mckayla Mancera PCP - General Family Medicine 04/14/14 Costume Director Relationship Specialty Start Date End Date de Mckayla Mancera PCP - General Family Medicine 04/14/14 Costume Director Relationship Specialty Start Date End Date de Mckayla Mancera PCP - General Family Medicine 04/14/14 Costume Director Relationship Specialty Start Date End Date de Mckayla Mancera PCP - General Family Medicine 04/14/14 Costume Director Relationship Specialty Start Date End Date de Mckayla Mancera PCP - General Family Medicine 04/14/14 Costume Director Relationship Specialty Start Date End Date Mckayla Alexis PCP - General Family Medicine 04/14/14 Team Status: Active Member Role Status Dates Mckayla Westbrook MD Primary Care Provider Active Team Status: Inactive Member Role Status Dates Bela Kelly APRN Attending Provider Active Start: January 30, 2024 End: January 30, 2024 Mckayla Westbrook MD Primary Care Provider Active Start: January 30, 2024 End: January 30, 2024 Costume Director Relationship Specialty Start Date End Date de Mckayla Mancera PCP - General Family Medicine 04/14/14 INFORMATION SOURCE (unrecogn ized section and content) DATE CREATED AUTHOR 06/25/2022 [facility] [place] [facility] DATE CREATED AUTHOR AUTHOR'S ORGANIZ ATION [facility]20[facility] DATE CREATED AUTHOR AUTHOR'S ORGANIZ ATION 02/19/2024 [facility] DATE CREATED AUTHOR AUTHOR'S ORGANIZ ATION 04/04/2024 [facility] DATE CREATED AUTHOR AUTHOR'S ORGANIZ ATION 04/29/2024 [facility] EPIC Goals (unrecognized section and content) Goals may be documented in a n alternate section FOR RECORDS PERTAINING TO PATIENTS WHO ARE OR HAVE BEEN ENROLLED IN A CHEMICAL DEPENDENCY/SUBSTANCEABUSE PROGRAM, SOME INFORMATION MAY BE OMITTED. This clinical summary was aggregated from multiple sources. Caution should be exercised in using it in the provision of clinical care. This summary normalizes information from multiple sources, and as a consequence, information in this document may materially change the coding, format and clinical context of patient data. In addition, data may be omitted in some cases. CLINICAL DECISIONS SHOULD BE BASED ON THE PRIMARY CLINICAL RECORDS. [email or web address] provides no warranty or guarantee of the accuracy or completeness of information in this document.
--- NOTE | 2024-05-06 15:46 | MM_ITS ---
Patient Name: LOIS ROJAS MR#: [id number] : 1990 Exam Date: 05/06/2024 Ordering Doctor: DR Marcello El . RADIOLOGY REPORT PROCEDURE: MM TOMOSYNTHESIS DIAGNOSTIC BI, 05/06/2024, 15:54 US BREAST LT LIMITED, 05/06/2024, 15:10 COMPARISON: None. INDICATIONS: Breast Lump Calculator Name NCI Breast Cancer Risk Assessment Tool 5 Year Breast Cancer Risk Not Reported. Lifetime Breast Cancer Risk Not Reported. Personal Breast Cancer No Personal Ovarian Cancer No Treatments None Family Cancers None LOCATION: [facility] [place] BREAST COMPOSITION: The breasts are heterogeneously dense,which may obscure small masses. FINDINGS: DIAGNOSTIC CATEGORY 1--NEGATIVE. RIGHT BREAST: No significant suspicious finding via mammography, tomosynthesis, and ultrasound. LEFT BREAST: No significant suspicious finding be mammography, tomosynthesis, and ultrasound. RECOMMENDATIONS: ROUTINE MAMMOGRAM AND CLINICAL EVALUATION IN 12 MONTHS. PLEASE NOTE: A NORMAL MAMMOGRAM DOES NOT EXCLUDE THE POSSIBILITY OF BREAST CANCER. A CLINICALLY SUSPICIOUS PALPABLE LUMP SHOULD BE BIOPSIED. Dictated by: Ronaldo Bridges M.D. on 05/06/2024 at 16:43 Approved by: Ronaldo Bridges M.D. on 05/06/2024 at 16:48
== END 2024-05-06 14:57 | disposition home or self-care (01) ==
LOC: US 14:56
PROVIDERS: PCP Obstetrics & Gynecology; Visit Provider Obstetrics & Gynecology
DX: N63.21 Unspecified lump in the left breast, upper outer quadrant (principal)
CPT/HCPCS: 76642; 77066; G0279

== ENCOUNTER 2025-05-03 12:52 | Outpatient (REF) | payer OTHER, SELFPAY ==
[2025-05-05 10:08] LABS: Age Gdln ACOG Testing Note (.); IGP, Aptima HPV, rfx 16/18,45 Note (.)
== END 2025-05-03 12:53 | disposition home or self-care (01) ==
LOC: LAB 12:52
PROVIDERS: Visit Provider Obstetrics & Gynecology
DX: Z01.419 Encounter for gynecological examination (general) (routine) without abnormal findings (principal)
CPT/HCPCS: 87624; 88175